=== PATIENT | female | born 1935 | race Two or more races ===

== ENCOUNTER 2017-08-02 17:06 | Inpatient (IN) | payer MEDICARE, OTHER ==
[~2017-08-02] VITALS: Ht 142.2 cm; Wt 47.3 kg
--- NOTE | 2017-08-02 17:19 | NUR ---
PT BIBA FROM HOME S/P FALL AND POSSIBLE LEFT HIP AND KNEE INJURY. NOTED HX OF KNEE REPLACEMENTS. SEEN BY MD FOR CALEB. FAVIOLA AWAD. PT AAOX3. VSS. SAFETY AND COMFORT MEASURES PROVIDED. WILL MONITOR.
--- NOTE | 2017-08-02 17:54 | NUR ---
PATIENCE PETER AT BS.
--- NOTE | 2017-08-02 18:01 | NUR ---
CALLED DR.NUSSBAUM GINETTE CLEAT FEEDER, TRANSFERRED CALL TO
--- NOTE | 2017-08-02 18:22 | NUR ---
PAGED TRAFFIC SIGNAL MECHANIC HOSPITALIST DR MENDEZ.
[2017-08-02] MEDS ORDERED: [UNRECOGNIZED DRUG - REMARK] (18:25)
[2017-08-02] MEDS ORDERED: [UNRECOGNIZED DRUG - REMARK] (18:25)
[2017-08-02] MEDS ORDERED: [UNRECOGNIZED DRUG - REMARK] (18:25)
[2017-08-02] MEDS ORDERED: UNK BP MEDICATION (18:25)
[2017-08-02 18:34] LABS: BASOPHILS % (AUTO) 0.1 % (0.0-2.0); EOSINOPHILS # (AUTO) 0.1 /CMM (0.0-0.7); EOSINOPHILS % (AUTO) 0.6 % (0.0-6.0); HEMATOCRIT 25 % (33-45); HEMOGLOBIN 8.5 g/dL (11.5-14.8); LYMPHOCYTES # (AUTO) 1.1 /CMM (0.8-4.8); MEAN CORPUSCULAR HEMOGLOBIN 31 PG (26.0-33.0); MEAN CORPUSCULAR HGB CONC 34 g/dl (31.0-36.0); MEAN CORPUSCULAR VOLUME 89 fL (82-100); MONOCYTES # (AUTO) 0.5 /CMM (0.1-1.30); MONOCYTES % (AUTO) 4.7 % (2.0-12.0); NEUTROPHILS # (AUTO) 8.4 /CMM (1.8-8.9); NEUTROPHILS % (AUTO) 83.6 % (43.0-81.0); PLATELET COUNT (AUTO) 209 /CMM (150-450); RDW COEFFICIENT OF VARIATION 16.6 (11.5-15.0); WHITE BLOOD COUNT (AUTO) 10.1 K/uL (4.3-11.0)
[2017-08-02 18:44] LABS: CALCIUM, SERUM 8.3 mg/dL (8.5-10.1); CARBON DIOXIDE 28 mmol/L (21-32); CHLORIDE 102 mmol/L (98-107); CREATININE 0.8 mg/dL (0.6-1.3); GLUCOSE 106 mg/dL (74-106); POTASSIUM 4.2 mmol/L (3.5-5.1); SODIUM SERUM 135 mmol/L (136-145); UREA NITROGEN, BLOOD 19 mg/dL (7-18)
[2017-08-02 18:48] LABS: INR 1.02 (0.87-1.13); PROTHROMBIN TIME 10.6 SECS (9.5-12.7)
[2017-08-02] MEDS ORDERED: MORPHINE SULFATE INJ 2 MG/ML DISP.SYRIN IV PRN (19:00)
[2017-08-02] MEDS ORDERED: ZOLPIDEM TARTRATE 5 MG TABLET PO PRN (19:00)
[2017-08-02] MEDS ORDERED: MAGNESIUM HYDROXIDE 30 ML UDC PO PRN (19:00)
[2017-08-02] MEDS ORDERED: Z GUARD REMEDY 2 OZ OINT TP PRN (19:00)
--- NOTE | 2017-08-02 19:41 | NUR ---
REPORT CALLED TO M/S LINDA KAMARA.
[2017-08-02 20:00] VITALS: BP 119/53
--- NOTE | 2017-08-02 20:00 | NUR ---
MS/RN OPENING NOTES PT RECEIVED FROM ER VIA DAMONRBRENDA ACCOMPANIED BY FAMILY. A/OX3, POLISH SPEAKING. IV TO LAC PATENT AND INTACT. ON ROOM AIR, BREATHING EVEN AND UNLABORED. IN NO APPARENT DISTRESS. NOTES PAIN 7/10 TO LEFT LEG. ORIENTED PT TO ROOM AND CALL LIGHT. BED IN LOW/LOCKED POSITION WITH CALL LIGHT IN REACH. SIDE RAILS UPX2. WILL CONTINUE TO MONITOR
[2017-08-02] MEDS ORDERED: FERR-58 PO (20:33)
[2017-08-02] MEDS ORDERED: BENA40TA2 PO (20:33)
[2017-08-02] MEDS ORDERED: MULT1TAB73 PO (20:33)
[2017-08-02] MEDS ORDERED: ATEN50TA PO (20:33)
[2017-08-02] MEDS ORDERED: OMEP20CA10 PO (20:33)
[2017-08-02] MEDS ORDERED: DICL50TA9 PO (20:33)
[2017-08-02] MEDS ORDERED: AMLO5TAB2 PO (20:33)
[2017-08-02] MEDS ORDERED: CYAN10009 PO (20:33)
[2017-08-02] MEDS ORDERED: CHOL200026 PO (20:33)
[2017-08-02] MEDS ORDERED: CALC-1026 PO (20:33)
[2017-08-02 20:35] VITALS: BP 119/53
[2017-08-02] MEDS: HYDROCODONE/APAP 5/325MG 1 EACH TABLET PO PRN (20:53)
--- NOTE | 2017-08-03 06:17 | NUR ---
MS/RN CLOSING NOTES PT ASLEEP, GRANDDAUGHTER AT BEDSIDE THROUGHOUT THE NIGHT. A/OX3, REMAINS ON ROOM AIR, BREATHING EVEN AND UNLABORED. IN NO APPARENT DISTRESS OR PAIN. NO FACIAL GRIMACING NOTED. IV TO LAC PATENT AND INTACT. BED IN LOW/LOCKED POSITION, CALL LIGHT WITHIN REACH AT ALL TIMES. SIDE RAILS UPX2. NO SIGNIFICANT CHANGES OVERNIGHT. KEPT PT COMFORTABLE DURING SHIFT. ALL NEEDS MET. WILL ENDORSE TO AM SHIFT EMILY.
[2017-08-03 06:42] LABS: BASOPHILS % (AUTO) 0.5 % (0.0-2.0); EOSINOPHILS % (AUTO) 0.9 % (0.0-6.0); HEMATOCRIT 23 % (33-45); HEMOGLOBIN 7.8 g/dL (11.5-14.8); LYMPHOCYTES # (AUTO) 1.5 /CMM (0.8-4.8); LYMPHOCYTES % (AUTO) 29.9 % (20.0-44.0); MEAN CORPUSCULAR HEMOGLOBIN 31 PG (26.0-33.0); MEAN CORPUSCULAR HGB CONC 34 g/dl (31.0-36.0); MEAN CORPUSCULAR VOLUME 90 fL (82-100); MONOCYTES # (AUTO) 0.4 /CMM (0.1-1.30); MONOCYTES % (AUTO) 8.9 % (2.0-12.0); NEUTROPHILS % (AUTO) 59.8 % (43.0-81.0); PLATELET COUNT (AUTO) 190 /CMM (150-450); RDW COEFFICIENT OF VARIATION 16.8 (11.5-15.0); RED BLOOD CELL COUNT(AUTO) 2.51 MIL/uL (4.0-5.2); WHITE BLOOD COUNT (AUTO) 4.9 K/uL (4.3-11.0)
[2017-08-03 07:04] LABS: CALCIUM, SERUM 8.7 mg/dL (8.5-10.1); CREATININE 0.8 mg/dL (0.6-1.3); GLUCOSE 88 mg/dL (74-106); MAGNESIUM 1.9 mg/dL (1.8-2.4); PHOSPHORUS 3.9 mg/dL (2.5-4.9); UREA NITROGEN, BLOOD 15 mg/dL (7-18)
[2017-08-03 07:18] LABS: CARBON DIOXIDE 28 mmol/L (21-32); CHLORIDE 104 mmol/L (98-107); POTASSIUM 4.6 mmol/L (3.5-5.1); SODIUM SERUM 138 mmol/L (136-145)
[2017-08-03] MEDS ORDERED: CHOL100044 PO (07:36)
[2017-08-03 08:00] VITALS: BP 96/44
[2017-08-03] MEDS: MORPHINE SULFATE INJ 4 MG/ML DISP.SYRIN IV PRN ×2 (15:41→20:25)
[2017-08-03 16:00] VITALS: BP 102/54
--- NOTE | 2017-08-03 16:45 | NUR ---
DR MENDEZ ON FLOOR. INFORMED MD OR NEED FOR MED RECON.
--- NOTE | 2017-08-03 19:30 | NUR ---
SUPPORT SERVICE TECH NOTE, RECEIVED PATIENT AWAKE AND IN BED HAS A COMPLAINT OF LEFT LEG PAIN AT 7 OUT 10ON THE PAIN SCALE. PATIENT IS ON IV PAIN MEDICATION FOR THIS PAIN. PATIENT IS GUINEAN SPEAKING ONLY. PATIENT IS DISPLAYING NO S/S OF APPARENT DISTRESS AT THIS TIME. PATIENT BREATHING IS UNLABORED WITH EQUAL RISE AND FALL OF THE CHEST. PATIENT IS ALERT AND ORIENTED X 3 ON ROOM AIR WITH A SPOO2 98 %. PATIENT HAS LEFT AC 20 GAUGE THAT IS INTACT, PATENT, AND FLUSHING WELL WITH NO S/S OF INFILTRATION. PATIENT ASSISTED WITH TURNING AND REPOSITIONING Q2HR AND PRN FOR COMFORT AND CIRCULATION. PATIENT HAS NO NEEDS AT THIS TIME. PATIENT EDUCATED ON THE USE OF THE CALL LIGHT. PATIENT BED SIDE RAILS UP X 2 FOR SAFETY. PATIENT BED IS LOCKED AND LOW WILL CONTINUE TO MONITOR AND MAINTAIN SAFETY WITH THE HELP OF STAFF.
[2017-08-03 20:00] VITALS: BP 127/62
--- NOTE | 2017-08-03 20:25 | NUR ---
MED / PLANT PROTECTION SUPERINTENDENT NOTE, PATIENT HAS A COMPLAINT OF LEFT LEG PAIN AT 8 OUT 10 ON THE PAIN SCALE AND IS REQUESTING MORPHINE. PATIENT VITAL SIGNS ARE STABLE. GAVE MORPHINE SULFATE 2 MG IV Q4HR PRN ORDERED. WILL REASSESS PAIN AND I WILL CONTINUE TO MONITOR THIS PATIENT.
--- NOTE | 2017-08-04 06:07 | NUR ---
MODELING INSTRUCTOR NOTE, PATIENT AWAKE AND IN BED HAS A COMPLAINT OF LEFT LEG PAIN AT 7 OUT 10 ON THE PAIN SCALE. PATIENT IS ON IV PAIN MEDICATION FOR THIS PAIN. PATIENT IS TURKMEN SPEAKING ONLY. PATIENT IS DISPLAYING NO S/S OF APPARENT DISTRESS AT THIS TIME. PATIENT BREATHING IS UNLABORED WITH EQUAL RISE AND FALL OF THE CHEST. PATIENT IS ALERT AND ORIENTED X 3 ON ROOM AIR WITH A SPOO2 98 %. PATIENT HAS LEFT AC 20 GAUGE THAT IS INTACT, PATENT, AND FLUSHING WELL WITH NO S/S OF INFILTRATION. PATIENT ASSISTED WITH TURNING AND REPOSITIONING Q2HR AND PRN FOR COMFORT AND CIRCULATION. ALL PATIENT NEEDS ANTICIPATED AND MET. PATIENT KEPT CLEAN, DRY, AND COMFORTABLE THROUGH OUT THE SHIFT. PATIENT BED SIDE RAILS UP X 2 FOR SAFETY. PATIENT BED IS LOCKED AND LOW WILL ENDORSE TO AM SHIFT NURSE FOR CONTINUATION OF CARE.
--- NOTE | 2017-08-04 07:05 | NUR ---
MS RN OPENING NOTES RECEIVED PT FROM NIGHTSHIFT NURSE IN STABLE CONDITION. PT IS A/O X3. NO SOB OR SIGNS OF DISTRESS NOTED. BREATHING IS EVEN AND UNLABORED. PT IS ON RA AND SATING WELL @97%. PT HAS BEEN NPO SINCE MIDNIGHT FOR PLANNED PROCEDURE THIS MORNING WITH DR. MAGALLON. CONSENTS AND CHECKLIST COMPLETED. IV NOTED ON LEFT AC 20G. IV IS PATENT AND INTACT. NO REDNESS OR SIGNS OF INFILTRATION NOTED. BED IN LOW LOCKED POSITION, SIDE RAILS UP X2, CALL LIGHT WITHIN REACH. PT'S GRANDDAUGHTER AT BEDSIDE. WILL CONTINUE TO MONITOR
[2017-08-04 08:00] VITALS: BP 101/42
[2017-08-04 08:28] LABS: BASOPHILS % (AUTO) 0.4 % (0.0-2.0); EOSINOPHILS % (AUTO) 0.2 % (0.0-6.0); HEMATOCRIT 22 % (33-45); HEMOGLOBIN 7.7 g/dL (11.5-14.8); LYMPHOCYTES # (AUTO) 1.3 /CMM (0.8-4.8); LYMPHOCYTES % (AUTO) 23.3 % (20.0-44.0); MEAN CORPUSCULAR HEMOGLOBIN 32 PG (26.0-33.0); MEAN CORPUSCULAR HGB CONC 34 g/dl (31.0-36.0); MEAN CORPUSCULAR VOLUME 92 fL (82-100); MONOCYTES # (AUTO) 0.4 /CMM (0.1-1.30); MONOCYTES % (AUTO) 7.9 % (2.0-12.0); NEUTROPHILS # (AUTO) 3.7 /CMM (1.8-8.9); NEUTROPHILS % (AUTO) 68.2 % (43.0-81.0); PLATELET COUNT (AUTO) 178 /CMM (150-450); RED BLOOD CELL COUNT(AUTO) 2.44 MIL/uL (4.0-5.2); WHITE BLOOD COUNT (AUTO) 5.4 K/uL (4.3-11.0)
[2017-08-04 08:47] LABS: THYROID STIMULATING HORMONE 4.216 uIU/mL (0.358-3.74)
[2017-08-04 08:53] LABS: CALCIUM, SERUM 8.6 mg/dL (8.5-10.1); CHLORIDE 104 mmol/L (98-107); CREATININE 0.7 mg/dL (0.6-1.3); GLUCOSE 98 mg/dL (74-106); MAGNESIUM 1.9 mg/dL (1.8-2.4); PHOSPHORUS 3.4 mg/dL (2.5-4.9); POTASSIUM 4.5 mmol/L (3.5-5.1); SODIUM SERUM 138 mmol/L (136-145); UREA NITROGEN, BLOOD 13 mg/dL (7-18)
[2017-08-04 09:06] LABS: CARBON DIOXIDE 27 mmol/L (21-32)
[2017-08-04 09:47] LABS: IRON, SERUM 27 ug/dl (50-175); TOTAL IRON BINDING CAPACITY 307 ug/dl (250-450)
--- NOTE | 2017-08-04 10:01 | NUR ---
MS RN NOTES PT TAKEN DOWN FOR PROCEDURE IN STABLE CONDITION
[2017-08-04] MEDS ORDERED: MORPHINE SULFATE/PF 10 MG/10ML (1MG/ML) AMPUL ONE (10:30)
[2017-08-04] MEDS ORDERED: TRANEXAMIC ACID 3,000 MG in SODIUM CHLORIDE IRRIG SOLUTION 70 ML IR ONE (11:30)
[2017-08-04] MEDS ORDERED: BACITRACIN 50000 UNITS/VIAL ONE (12:28)
--- NOTE | 2017-08-04 14:03 | NUR ---
MS RN NOTES PT BACK FROM OR IN STABLE CONDITION. LEFT KNEE IMMOBILIZER NOTED. DIET WAS ADVANCED TO CLEAR LIQUIDS. ORDERS BY DR. MAGALLON REVIEWED AND NOTED. PT'S CURRENT VITALS: BP 114/55; HR 84, O2 98%, R 19, TEMP 98.4. WILL CONTINUE TO MONITOR.
[2017-08-04] MEDS: SOD FERRIC GLUC 125 MG in IV NS 0.9% 100 ML IV SCH (14:37)
[2017-08-04] MEDS: ONDANSETRON HCL/PF 4 MG/2 ML VIAL IVP PRN ×2 (14:57→21:55)
[2017-08-04 16:00] VITALS: BP 91/49
[2017-08-04] MEDS: DOCUSATE SODIUM 100 MG CAPSULE PO SCH (16:02)
--- NOTE | 2017-08-04 16:04 | NUR ---
MS RN NOTES PT'S VITAL SIGNS HAVE CONTINUED TO FLUCTUATE SINCE ARRIVAL FROM OR. HER BP HAS GONE HIGH 134/63 TO LOW 84/42. SHE WAS PLACED IN [place] AND HER BP HAS REMAINED IN THE HIGH 90S TO LOW 100S. VARIOUS METHODS WERE TRIED TO GET A PROPER O2 SAT READING. PT'S SAT HAS BEEN HIGH 100% BUT THEN DROPS TO THE LOW 80S. SHE WAS PLACED ON A NONREBREATHER MASK TO NO AVAIL. AN ADULT AND PEDIATRIC PULSE OX ADHESIVE SENSOR WERE PLACED ON PT, BUT STILL UNABLE TO GET A PROPER READING. DR. MENDEZ WAS CALLED THROUGH THE EXCHANGE. CURRENTLY AWAITING CALL BACK.
--- NOTE | 2017-08-04 16:21 | NUR ---
RN NOTES CALL RECEIVED BY DR. MENDEZ. PER DR MENDEZ, "TRANSFER PT TO TELE, GET AND ORDER FOR CXR, ABGS, AND ALBUTEROL NEBULIZER TREATMENT Q4" WILL CARRY OUT ORDERS Addendum: 08/04/17 at 1623 by DEBORAH VILLALPANDO RN DR MENDEZ ALSO STATED THAT SHE WILL LIKE AND ORDER FOR NS @ 100ML/HR.
[2017-08-04] MEDS ORDERED: IV NS 0.9% 1,000 ML BAG IV PRN (16:30)
[2017-08-04] MEDS: ANCEF 1 GM/50 ML D5W IV SCH ×2 (17:24)
[2017-08-04] MEDS: IV NS 0.9% 1,000 ML IV PRN (17:25)
[2017-08-04] MEDS: ALBUTEROL FS 2.5 MG/0.5 ML VIAL.NEB NEB SCH ×3 (17:50→22:53)
--- NOTE | 2017-08-04 18:03 | NUR ---
MS RN NOTES PER RESPIRATORY THERAPIST, PT IS SATING WELL BETWEEN 92-94%. SHE IS NOW ON 2L O2 VIA NC. FAMILY IS REFUSING ABGS AT THIS TIME.
--- NOTE | 2017-08-04 18:15 | NUR ---
[facility] MARKETING SPECIALIST NOTE RECEIVED TELEPHONE REPORT FROM LINDA CABRERA. AWAITING FOR THE PATIET'S ARRIVAL TO THE UNIT.
--- NOTE | 2017-08-04 18:45 | NUR ---
TUBE AND MANIFOLD BUILDERINSPECTOR RADAR AND ELECTRONICS CLOSING NOTE RECEIVED PATIENT. PATIENT IS IN BED, BED IS LOCKED IN LOWEST POSITION, SIDE RAILS UP X3, BED ALARM IS ON. PATIENT IS A/O X2, AWAKE AND RESPONSIVE. DAUGHTER ROSITA AT THE BEDSIDE. MS RN AFSATU REPORTED TWO EPISODES OF LOOSE STOOL. WILL ENDORSE TO THE ADMINISTRATIVE SERVICES COORDINATOR TO COLLECT A SAMPLE FOR CDIFF. PATIENT DENIES PAIN/DISCOMFORT AT THIS TIME. CHEST IS RISING EQUALLY BILATERALLY. SPO2 95 % ON 2L VIA NASAL CANNULA. LAC PERIPHERAL IV IS PATENT. NS RUNNING AT 100ML/HR PRESCRIBED. ALL NEEDS ARE MET AT THIS TIME. CALL LIGHT WITHIN REACH. PATIENT/DAUGHTER EDUCATED TO CALL FOR ASSISTANCE USING THE CALL LIGHT AND VERBALIZED UNDERSTANDING. WILL ENDORSE TO THE ADMINISTRATIVE SERVICES COORDINATOR NURSE FOR EMILY.
--- NOTE | 2017-08-04 18:56 | NUR ---
MS RN CLOSING NOTES PT WAS TRANSFERRED TO ROOM 321-2. REPORT GIVEN TO KAREN. PT HAD TWO LOOSE STOOLS DURING MY SHIFT AND ANOTHER DURING TRANSFER. ENDORSED TO [facility] TO GET A SAMPLE FOR CDIFF PER PROTOCOL. ALL NEEDS WERE MET DURING SHIFT AND ORDERS CARRIED OUT ACCORDINGLY.
--- NOTE | 2017-08-04 19:30 | NUR ---
RN NOTES RECEIVED PATIENT IN BED AWAKE, AO X 3, ABLE TO MAKE NEEDS KNOWN. NO ACUTE DISTRESS NOTED. MONITORED FOR PAIN. IV SITE PATENT, INTACT; IVF INFUSING ORDERED. LEFT LEG IMMOBILIZER IN PLACE. LEFT HIP DRESSING INTACT. SAFETY REMINDERS GIVEN. ON LOW BED WITH BILATERAL UPPER SIDE RAILS UP. CALL FERNANDEZ WITHIN EASY REACH. WILL CONTINUE TO MONITOR.
[2017-08-04 20:00] VITALS: BP 110/69
[2017-08-04] MEDS: HYDROCODONE/APAP 5/325MG 1 EACH TABLET PO PRN (21:08)
[2017-08-04] MEDS: MORPHINE SULFATE INJ 4 MG/ML DISP.SYRIN IV PRN (21:56)
[2017-08-04] MEDS: POLYETHYLENE GLYCOL 3350 17 GM POWD.PACK PO SCH (22:00)
[2017-08-05] VITALS (12 sets, daily range): BP systolic 109–154; BP diastolic 53–88
[2017-08-05] MEDS: ANCEF 1 GM/50 ML D5W IV SCH ×4 (00:24→09:03)
[2017-08-05] MEDS: ALBUTEROL FS 2.5 MG/0.5 ML VIAL.NEB NEB SCH ×6 (02:39→23:15)
[2017-08-05] MEDS: ONDANSETRON HCL/PF 4 MG/2 ML VIAL IVP PRN ×2 (04:33→19:59)
[2017-08-05] MEDS: ENOXAPARIN SODIUM 40 MG/0.4 ML DISP.SYRIN SQ SCH (06:00)
--- NOTE | 2017-08-05 06:05 | NUR ---
RN NOTES LOVENOX HELD PER ORDER FROM DR. MAGALLON TO GIVE LOVENOX IF HGB IS >9. LATEST HGB 7.7; LOVENOX HELD.
--- NOTE | 2017-08-05 06:07 | NUR ---
RN NOTES RECEIVED PATIENT IN BED ASLEEP, EASILY AROUSABLE. RESPIRATIONS EVEN. NO SIGNS OF PAIN NOTED. DUE MEDS GIVEN WITH NO ASE NOTED. NEEDS ATTENDED. KEPT CLEAN AND DRY. STOOL COLLECTED FOR C DIFF. SAFETY PRECAUTIONS AND COMFORT MEASURES IN PLACE. WILL GIVE REPORT TO DAY SHIFT FOR CONTINUITY OF CARE.
[2017-08-05 06:39] LABS: EOSINOPHILS % (AUTO) 0.1 % (0.0-6.0); LYMPHOCYTES # (AUTO) 0.8 /CMM (0.8-4.8); LYMPHOCYTES % (AUTO) 5.5 % (20.0-44.0); MEAN CORPUSCULAR HEMOGLOBIN 31 PG (26.0-33.0); MEAN CORPUSCULAR HGB CONC 34 g/dl (31.0-36.0); MEAN CORPUSCULAR VOLUME 93 fL (82-100); MONOCYTES # (AUTO) 0.9 /CMM (0.1-1.30); MONOCYTES % (AUTO) 6.1 % (2.0-12.0); NEUTROPHILS # (AUTO) 12.9 /CMM (1.8-8.9); NEUTROPHILS % (AUTO) 88.3 % (43.0-81.0); PLATELET COUNT (AUTO) 174 /CMM (150-450); RDW COEFFICIENT OF VARIATION 16.5 (11.5-15.0); RED BLOOD CELL COUNT(AUTO) 2.06 MIL/uL (4.0-5.2); WHITE BLOOD COUNT (AUTO) 14.6 K/uL (4.3-11.0)
[2017-08-05 06:50] LABS: HEMATOCRIT 19 % (33-45); HEMOGLOBIN 6.4 g/dL (11.5-14.8)
[2017-08-05] MEDS: MORPHINE SULFATE INJ 4 MG/ML DISP.SYRIN IV PRN ×3 (06:56→23:04)
[2017-08-05] MEDS: IV NS 0.9% 1,000 ML IV PRN (07:00)
--- NOTE | 2017-08-05 07:26 | NUR ---
RN NOTES PAGED DR. MENDEZ FOR CRITICAL H/H. WAITING FOR CALL BACK. NOTIFIED DAY SHIFT NURSE.
--- NOTE | 2017-08-05 07:33 | NUR ---
STEEL DIE ENGRAVER OPENING NOTES RECEIVED PATIENT AWAKE IN BED IN NO ACUTE SIGNS OF DISTRESS. GRANDDAUGHTER AT BEDSIDE. A/O X 3, SAME ABLE TO MAKE NEEDS KNOWN, NO C/O PAIN OR DISCOMFORTS VOICED AT THIS TIME. ON ROOM AIR AT THIS TIME, TOLERATING WITH NO SOB NOTED. PT ON TELE-MONITORING WITH CURRENT READING OF SR AND HR OF 82, NO C/O CHEST PAIN VOICED. IV SITE ON LAC PATENT AND INTACT, IVF OF NS @100 ML/HR INFUSING, NO SIGNS OF INFILTRATIONS NOTED. LEFT LEG IMMOBILIZER IN PLACE, LEFT HIP DRESSING INTACT, DRY WITH NO ACTIVE BLEEDING NOTED. BED LOCKED AND IN LOW POSITION WITH BILATERAL UPPER SIDE RAILS UP. CALL FERNANDEZ WITHIN EASY REACH. WILL CONTINUE TO MONITOR.
--- NOTE | 2017-08-05 07:43 | NUR ---
RN NOTES ORDER RECEIVED FOR PRBC TRANSFUSION FROM DR. MENDEZ, NOTED AND CARRIED OUT.
--- NOTE | 2017-08-05 08:05 | NUR ---
RN NOTES MD ORDERED FOR BLOOD TRANSFUSION TODAY FOR PT, EXPLAINED TO PT AND GREAT GRANDDAUGHTER AT BEDSIDE THAT PT NEEDS BLOOD TRANSFUSION BEC OF PT'S LOW HGB AND HCT, BOTH VERBALIZED UNDERSTANDING AND CONSENT WAS SIGNED AND FILED ON CHART.
[2017-08-05] MEDS: DOCUSATE SODIUM 100 MG CAPSULE PO SCH ×2 (09:00→16:57)
[2017-08-05 09:48] LABS: CARBON DIOXIDE 20 mmol/L (21-32); CHLORIDE 105 mmol/L (98-107); POTASSIUM 4.8 mmol/L (3.5-5.1); SODIUM SERUM 140 mmol/L (136-145)
[2017-08-05 09:50] LABS: CALCIUM, SERUM 7.5 mg/dL (8.5-10.1); CREATININE 2.4 mg/dL (0.6-1.3); GLUCOSE 147 mg/dL (74-106); UREA NITROGEN, BLOOD 40 mg/dL (7-18)
[2017-08-05 10:28] LABS: PHOSPHORUS 5.8 mg/dL (2.5-4.9)
[2017-08-05] MEDS: HYDROCODONE/APAP 5/325MG 1 EACH TABLET PO PRN (10:38)
--- NOTE | 2017-08-05 11:07 | NUR ---
RN NOTES PATIENT STARTED ON BLOOD TRANSFUSION OF 1 BAG 329ML PRBC WITH PRE BT V/S OF BP 144/75MMHG, P 86, R 18 AND TEMP OF 97.5F. WILL CONTINUE TO MONITOR.
--- NOTE | 2017-08-05 11:24 | NUR ---
RN NOTES PATIENT WITH ONGOING B/T NO ADVERSE REACTIONS NOTED AFTER 15MINUTES. WILL CONTINUE TO MONITOR.
[2017-08-05 11:54] LABS: BAND % (MANUAL) 11 % (0.0-5.0); LYMPHOCYTES % (MANUAL) 3 % (16-48); MONOCYTES % (MANUAL) 4 % (0-11.0); NEUTROPHILS % (MANUAL) 82 (42-76)
--- NOTE | 2017-08-05 14:05 | NUR ---
RN NOTES PT BLOOD TRANSFUSION FINISHED WITH POST B/T VS OF BP 140/61MMHG, P 89, R 18 AND T 97.8F. NO ADVERSE REACTIONS NOTED THROUGHOUT BLOOD TRANSFUSION. NO S/S OF DISTRESS NOTED. WILL CONTINUE TO MONITOR
[2017-08-05] MEDS: SOD FERRIC GLUC 125 MG in IV NS 0.9% 100 ML IV SCH (15:10)
--- NOTE | 2017-08-05 18:51 | NUR ---
MS RN CLOSING NOTES PATIENT AWAKE AND RESTING @ MODERATE HIGH BACKREST IN BED. A/O X 3 AND VERBALLY RESPONSIVE IN INDONESIAN. ON ROOM AIR AT THIS TIME, TOLERATING WITH NO SOB NOTED. IV SITE ON LEFT HAND G#22 PATENT AND INTACT, IVF OF NS @100 ML/HR INFUSING, NO SIGNS OF INFILTRATIONS NOTED. LEFT LEG IMMOBILIZER IN PLACE, LEFT HIP DRESSING INTACT, DRY WITH NO ACTIVE BLEEDING NOTED. HOB KEPT ELEVATED. BED LOCKED AND IN LOW POSITION WITH BILATERAL UPPER SIDE RAILS UP. CALL FERNANDEZ WITHIN EASY REACH. ALL NEEDS AND CARE PROVIDED WELL. WILL ENDORSED TO GROUND SYSTEMS ENGINEER NURSE FOR EMILY. .
--- NOTE | 2017-08-05 18:51 | NUR ---
MS RN OPENING NOTES PATIENT AWAKE AND RESTING @ MODERATE HIGH BACKREST IN BED. A/O X 3 AND VERBALLY RESPONSIVE IN CROATIAN. ON ROOM AIR AT THIS TIME, TOLERATING WITH NO SOB NOTED. IV SITE ON LEFT HAND G#22 PATENT AND INTACT, IVF OF NS @100 ML/HR INFUSING, NO SIGNS OF INFILTRATIONS NOTED. LEFT LEG IMMOBILIZER IN PLACE, LEFT HIP DRESSING INTACT, DRY WITH NO ACTIVE BLEEDING NOTED. HOB KEPT ELEVATED. BED LOCKED AND IN LOW POSITION WITH BILATERAL UPPER SIDE RAILS UP. CALL FERNANDEZ WITHIN EASY REACH. ALL NEEDS AND CARE PROVIDED WELL. WILL ENDORSED TO DIRECTOR CAMP NURSE FOR EMILY. . Addendum: 08/05/17 at 1932 by YOLIE ANDERSON RN ERROR: NOTES SHOULD BE MS RN CLOSING NOTES;
[2017-08-05] MEDS: MAG HYDROX/AL HYDROX/SIMETH 30 ML UDC PO PRN (19:59)
[2017-08-05] MEDS ORDERED: ALBUTEROL FS 2.5 MG/0.5 ML VIAL.NEB ONE (20:06)
[2017-08-05] MEDS: POLYETHYLENE GLYCOL 3350 17 GM POWD.PACK PO SCH (22:00)
[2017-08-06] VITALS (11 sets, daily range): BP systolic 103–125; BP diastolic 46–59
[2017-08-06] MEDS: ALBUTEROL FS 2.5 MG/0.5 ML VIAL.NEB NEB SCH ×6 (03:39→22:40)
--- NOTE | 2017-08-06 04:58 | NUR ---
RN NOTES PATIENT HAS PULLED OUT TWO IVS. POOR SAFETY AWARENESS. RECEIVED ORDER FOR BILATERAL SOFT WRIST RESTRAINTS FROM Eliud MILLER NP, NOTED AND MELA OUT. GRANDDAUGHTER JOHN AT BEDSIDE; MADE AWARE OF RESTRAINT ORDER; AGREEABLE WITH PLAN OF CARE.
[2017-08-06] MEDS: MORPHINE SULFATE INJ 4 MG/ML DISP.SYRIN IV PRN (05:30)
[2017-08-06] MEDS: IV NS 0.9% 1,000 ML IV PRN (05:36)
[2017-08-06] MEDS: ENOXAPARIN SODIUM 40 MG/0.4 ML DISP.SYRIN SQ SCH (06:00)
--- NOTE | 2017-08-06 06:05 | NUR ---
RN NOTES LOVENOX HELD PER ORDER FROM DR. MAGALLON TO GIVE LOVENOX IF HGB IS >9. LATEST HGB 6.4; LOVENOX HELD.
[2017-08-06 06:19] LABS: EOSINOPHILS % (AUTO) 0.1 % (0.0-6.0); HEMOGLOBIN 7.1 g/dL (11.5-14.8); LYMPHOCYTES # (AUTO) 0.9 /CMM (0.8-4.8); LYMPHOCYTES % (AUTO) 8.5 % (20.0-44.0); MEAN CORPUSCULAR HEMOGLOBIN 32 PG (26.0-33.0); MEAN CORPUSCULAR HGB CONC 35 g/dl (31.0-36.0); MEAN CORPUSCULAR VOLUME 90 fL (82-100); MONOCYTES # (AUTO) 0.9 /CMM (0.1-1.30); MONOCYTES % (AUTO) 8.5 % (2.0-12.0); NEUTROPHILS # (AUTO) 9.1 /CMM (1.8-8.9); NEUTROPHILS % (AUTO) 82.9 % (43.0-81.0); PLATELET COUNT (AUTO) 145 /CMM (150-450); RDW COEFFICIENT OF VARIATION 15.8 (11.5-15.0); RED BLOOD CELL COUNT(AUTO) 2.25 MIL/uL (4.0-5.2); WHITE BLOOD COUNT (AUTO) 10.9 K/uL (4.3-11.0)
--- NOTE | 2017-08-06 06:19 | NUR ---
RN NOTES PATIENT IN BED ASLEEP, EASILY AROUSABLE. RESPIRATIONS EVEN. NO SIGNS OF PAIN NOTED. DUE MEDS GIVEN WITH NO ASE NOTED. NEEDS ATTENDED. KEPT CLEAN AND DRY. SAFETY PRECAUTIONS AND COMFORT MEASURES IN PLACE. FAMILY AT BEDSIDE. WILL GIVE REPORT TO DAY SHIFT FOR CONTINUITY OF CARE.
[2017-08-06 06:36] LABS: HEMATOCRIT 20 % (33-45)
[2017-08-06 07:10] LABS: CALCIUM, SERUM 7.4 mg/dL (8.5-10.1); CARBON DIOXIDE 18 mmol/L (21-32); CHLORIDE 104 mmol/L (98-107); CREATININE 3.2 mg/dL (0.6-1.3); GLUCOSE 83 mg/dL (74-106); MAGNESIUM 1.8 mg/dL (1.8-2.4); PHOSPHORUS 3.3 mg/dL (2.5-4.9); POTASSIUM 3.7 mmol/L (3.5-5.1); SODIUM SERUM 136 mmol/L (136-145); UREA NITROGEN, BLOOD 56 mg/dL (7-18)
--- NOTE | 2017-08-06 07:24 | NUR ---
MS RN OPENING NOTES PATIENT RECEIVED AWAKE N BED IN NO ACUTE SIGNS OF DISTRESS. A/O X 3, VERBALLY RESPONSIVE IN JAPANESE, DENIES PAIN OR DISCOMFORTS AT THIS TIME. B/L SOFT WRIST RESTRAINTS IN PLACED TO PREVENT PT PULLING HER IV TUBE. ON ROOM AIR, TOLERATING WITH NO SOB NOTED. IV SITE ON LEFT WRIST G#22 PATENT AND INTACT, IVF OF NS @100 ML/HR INFUSING, NO SIGNS OF INFILTRATIONS NOTED. LEFT LEG IMMOBILIZER IN PLACE, LEFT HIP DRESSING INTACT, DRY WITH NO ACTIVE BLEEDING NOTED. HOB KEPT ELEVATED. BED LOCKED AND IN LOW POSITION WITH BILATERAL UPPER SIDE RAILS UP. CALL FERNANDEZ WITHIN EASY REACH. ALL NEEDS AND CARE PROVIDED WELL. WILL CONTINUE TO MONITOR.
[2017-08-06] MEDS: DOCUSATE SODIUM 100 MG CAPSULE PO SCH ×2 (08:45→17:00)
[2017-08-06 10:47] LABS: BAND % (MANUAL) 8 % (0.0-5.0); LYMPHOCYTES % (MANUAL) 12 % (16-48); MONOCYTES % (MANUAL) 2 % (0-11.0); NEUTROPHILS % (MANUAL) 78 (42-76)
[2017-08-06] MEDS ORDERED: Calcium Gluconate 0.465 MEQ/ML VIAL IV ONE (12:00)
[2017-08-06] MEDS ORDERED: Calcium Gluconate 1GM/10ML 4.65 MEQ in IV D5W 50 ML IV ONE (12:30)
[2017-08-06] MEDS: SOD FERRIC GLUC 125 MG in IV NS 0.9% 100 ML IV SCH (15:35)
--- NOTE | 2017-08-06 16:16 | NUR ---
RN NOTES DR MCCOY ORDER TO COLLECT URINE SPECIMEN FROM PT USING STRAIGHT CATHETER, ORDERED CARRIED OUT. COLLECTED URINE WITHOUT PROBLEM. PT'S DAUGHTER AT BEDSIDE AND AWARE OF PROCEDURE.
--- NOTE | 2017-08-06 17:28 | NUR ---
RN NOTES PT WITH LOW HGB OF 7.1 AND HCT OF 22 TODAY, STARTED BLOOD TRANSFUSION 289ML X1 AT 1710. PRE B/T V/S 114/51MMHG, P 110, R 18 AND TEMP 97.8F. NO ADVERSE REACTIONS NOTED AFTER 15MINUTES, NO SOB, NO RASHES NOTED. WILL CONTINUE TO MONITOR.
[2017-08-06 18:33] LABS: APPEARANCE,URINE SL CLOUDY (CLEAR); BILIRUBIN,URINE NEGATIVE (NEGATIVE); BLOOD, URINE 3+ Ery/uL (NEGATIVE); COLOR,URINE YELLOW (YELLOW); KETONES,URINE 1+ (NEGATIVE); LEUKOCYTE ESTERASE ,URINE TRACE (NEGATIVE); NITRITE, URINE NEGATIVE (NEGATIVE); PH,URINE 5.5 (5.0-8.0); PROTEIN,URINE 1+ mg/dl (NEGATIVE); UGLUCOSE NEGATIVE (NEGATIVE); UROBILINOGEN,URINE 0.2 EU/dL (0.2)
--- NOTE | 2017-08-06 18:46 | NUR ---
MS RN CLOSING NOTES PATIENT IN BED LYING AT SEMI-IBARRA'S POSITION. A/O X 3. VERBALLY RESPONSIVE IN SAO TOME[place], CONFUSED AT TIMES. B/L SOFT WRIST RESTRAINS IN PLACED TO PREVENT PT PULLING IV LINE AND GETTING OUT OF BED WHEN CONFUSE. DAUGHTER AT BEDSIDE THROUGHOUT THE DAY.ON ROOM AIR, TOLERATING WITH NO SOB NOTED. IV SITE ON LEFT WRIST G#22 PATENT AND INTACT, BLOOD TRANSFUSION ONGOING WITH NO ILL EFFECTS NOTED, V/S STABLE. LEFT LEG IMMOBILIZER IN PLACE, LEFT HIP DRESSING INTACT, DRY WITH NO ACTIVE BLEEDING NOTED. HOB KEPT ELEVATED. BED LOCKED AND IN LOW POSITION WITH BILATERAL UPPER SIDE RAILS UP. CALL FERNANDEZ WITHIN EASY REACH. ALL NEEDS AND CARE PROVIDED WELL. WILL ENDORSED TO YARN WEIGHT AND STRENGTH TESTER NURSE FOR CONTINUITY OF CARE.
[2017-08-06 19:08] LABS: CREATININE, URINE 68.8 MG/DL (30.0-125.0); URINE TOTAL PROTEIN 125.2 mg/dL (0-11.9)
--- NOTE | 2017-08-06 19:20 | NUR ---
MS/CAMERA REPAIR TECHNICIAN; RECEIVED PT IN BED AWAKE, VERBALLY RESPONSIVE, ALBANIAN SPEAKING. WITH FINISHING 1 UNIT OF PRBC ON PROGRESS. BREATHING NON LABORED. PT WITH BILATERAL SOFT WRIST RESTRAINTS ON TO PREVENT PULLING IV. BED ON LOWER POSITION AND LOCKED FOR SAFETY. SIDE RAILS ARE UP FOR SAFETY. CALL LIGHT WITHIN REACH.
[2017-08-06 19:22] LABS: BACTERIA,URINE 2+ /HPF (None Seen)
[2017-08-06 19:23] LABS: SQUAMOUS EPITHELIAL CELL,UR 0-2 /HPF (None Seen); URINE AMORPHOUS URATE Many /HPF (None Seen)
--- NOTE | 2017-08-06 19:45 | NUR ---
MS/MASH FILTER CLOTH CHANGER; BLOOD TRANSFUSION DONE. NO REACTION NOTED.
[2017-08-06 21:06] LABS: EOSINOPHIL,URINE NEG
[2017-08-06] MEDS: POLYETHYLENE GLYCOL 3350 17 GM POWD.PACK PO SCH (21:59)
--- NOTE | 2017-08-06 23:15 | NUR ---
MS/APPLICATION DEVELOPMENT INTERN; I PLACED A CALL TO JIM MILLER NP WHO IS CLINICAL TEAM MANAGER TO CLARIFY IF I NEED TO GIVE THE LOVENOX 40 SQ , PT POST OP S/P LT FEMUR ORIF AND HAD 1 UNIT OF PRBC AND SHE SAID TO GIVE IT.
[2017-08-07] MEDS: ALBUTEROL FS 2.5 MG/0.5 ML VIAL.NEB NEB SCH ×6 (02:27→23:55)
[2017-08-07] MEDS: IV NS 0.9% 1,000 ML IV PRN (04:05)
[2017-08-07] MEDS: MORPHINE SULFATE INJ 4 MG/ML DISP.SYRIN IV PRN (04:06)
--- NOTE | 2017-08-07 04:09 | NUR ---
MORPHINE GIVEN ORDERED FOR C/O SEVERE L SHOULDER AND LEG PAIN,. WILL CONT TO MONITOR,
[2017-08-07] MEDS: ENOXAPARIN SODIUM 40 MG/0.4 ML DISP.SYRIN SQ SCH (06:10)
[2017-08-07] MEDS: ONDANSETRON HCL/PF 4 MG/2 ML VIAL IVP PRN (06:19)
[2017-08-07 06:56] LABS: BASOPHILS % (AUTO) 0.1 % (0.0-2.0); EOSINOPHILS % (AUTO) 0.1 % (0.0-6.0); HEMATOCRIT 28 % (33-45); HEMOGLOBIN 9.5 g/dL (11.5-14.8); LYMPHOCYTES # (AUTO) 0.8 /CMM (0.8-4.8); LYMPHOCYTES % (AUTO) 5.9 % (20.0-44.0); MEAN CORPUSCULAR HEMOGLOBIN 32 PG (26.0-33.0); MEAN CORPUSCULAR HGB CONC 34 g/dl (31.0-36.0); MEAN CORPUSCULAR VOLUME 92 fL (82-100); MONOCYTES # (AUTO) 0.9 /CMM (0.1-1.30); MONOCYTES % (AUTO) 6.8 % (2.0-12.0); NEUTROPHILS # (AUTO) 11.3 /CMM (1.8-8.9); NEUTROPHILS % (AUTO) 87.1 % (43.0-81.0); PLATELET COUNT (AUTO) 151 /CMM (150-450); RDW COEFFICIENT OF VARIATION 15.3 (11.5-15.0)
--- NOTE | 2017-08-07 07:00 | NUR ---
MS/REPAIRING CALIBRATOR; SLEPT FAIRLY. IVF ON PROGRESS. SLEPT FAIRLY. DRESSING LT HIP INTACT . HAS IMMOBILIZER . CONTINUE TO MONITOR. WILL ENDORSE TO THE DAY SHIFT NURSE FOR CONTINUITY OF CARE.
[2017-08-07 07:16] LABS: ALANINE AMINOTRANSFERASE 39 U/L (12-78); ALBUMIN 2.1 g/dL (3.4-5.0); ALKALINE PHOSPHATASE 98 U/L (46-116); ASPARTATE AMINOTRANSFERASE 147 U/L (15-37); BILIRUBIN,TOTAL 0.7 mg/dL (0.2-1.0); CALCIUM, SERUM 7.8 mg/dL (8.5-10.1); CARBON DIOXIDE 15 mmol/L (21-32); CHLORIDE 104 mmol/L (98-107); CREATININE 2.2 mg/dL (0.6-1.3); GLUCOSE 66 mg/dL (74-106); MAGNESIUM 2.6 mg/dL (1.8-2.4); PHOSPHORUS 3.3 mg/dL (2.5-4.9); POTASSIUM 4.1 mmol/L (3.5-5.1); SODIUM SERUM 137 mmol/L (136-145); TOTAL PROTEIN, SERUM 5.2 g/dL (6.4-8.2); UREA NITROGEN, BLOOD 48 mg/dL (7-18)
[2017-08-07 07:20] LABS: CREATINE KINASE, TOTAL 617 U/L (26-192)
[2017-08-07 08:00] VITALS: BP 106/63
[2017-08-07 09:55] LABS: CREATINE KINASE MB 6.1 ng/mL (0-3.6)
[2017-08-07] MEDS: DOCUSATE SODIUM 100 MG CAPSULE PO SCH ×2 (10:18→17:00)
[2017-08-07 12:34] LABS: BAND % (MANUAL) 3 % (0.0-5.0); LYMPHOCYTES % (MANUAL) 13 % (16-48); NEUTROPHILS % (MANUAL) 84 (42-76)
[2017-08-07 16:00] VITALS: BP 112/55
--- NOTE | 2017-08-07 17:02 | NUR ---
patient stable on shift. Family at bedside. PT stood up patient in a.m. tolerated p.t. no episodes of falls on shift at this point and time. call light with in reach. Dressing is dry and intact. Pain is moderate. Per family patient is noted to have cough. Noted wet lung sounds from a.m. on excertion but not while moving in bed.
[2017-08-07] MEDS: SOD FERRIC GLUC 125 MG in IV NS 0.9% 100 ML IV SCH (18:40)
[2017-08-07] MEDS: ACETAMINOPHEN 325 MG TABLET PO PRN (19:55)
--- NOTE | 2017-08-07 19:55 | NUR ---
MAURICIO INITIAL NOTES CHECKED PT AFTER GOT REPORT FROM AM NURSE. PT COMPLAINT OF MILD PAIN GIVEN ORDERED AND FAMILY REQUESTED TOO. IVF STILL INFUSING ON HER LEFT WRIST PATENT AND INTACT. NOT IN ANY ACUTE DISTRESS NOTED. SHE'S CALMED AT THIS MOMENT NO SOFT WRIST RESTRAIN NOTED. AWARE WHERE SHE AT AND HOW TO USED THE CALL LIGHT SYSTEM. KEPT HER WARM AND COMFORTABLE AT ALL TIMES. FAMILY AT THE BEDSIDE AT THIS TIME. WILL CONTINUE TO MONITOR. PLACE CALL LIGHT AT REACH. Addendum: 08/08/17 at 0220 by ROHITH SALTER LVN TYLENOL GIVEN FOR HER MILD PAIN.
[2017-08-07 20:00] VITALS: BP 103/52
[2017-08-07 22:00] VITALS: BP 103/52
[2017-08-07] MEDS: POLYETHYLENE GLYCOL 3350 17 GM POWD.PACK PO SCH (22:00)
[2017-08-08] MEDS: ACETAMINOPHEN 325 MG TABLET PO PRN ×2 (01:45→10:23)
[2017-08-08] MEDS: IV NS 0.9% 1,000 ML IV PRN (01:45)
[2017-08-08] MEDS: MAG HYDROX/AL HYDROX/SIMETH 30 ML UDC PO PRN (02:12)
--- NOTE | 2017-08-08 02:20 | NUR ---
CATERING STAFF MEMBER/NOTES PT WOKE UP AND COMPLAINING OF BACK PAIN , REPOSITION HER FOR COMFORT, TYLENOL GIVEN AND PT TOLERATED WELL NO N/V NOTED. MAALOX ALSO ADMINISTERED FOR UPSET STOMACH . KEPT HER WARM AND COMFORTABLE AT ALL TIMES. WILL CONTINUE TO MONITOR. SITTER AT THE BEDSIDE. (GREAT GRAND DAUGHTER).
[2017-08-08] MEDS: ALBUTEROL FS 2.5 MG/0.5 ML VIAL.NEB NEB SCH ×4 (03:54→16:09)
[2017-08-08] MEDS: ENOXAPARIN SODIUM 40 MG/0.4 ML DISP.SYRIN SQ SCH (06:33)
[2017-08-08] MEDS: ONDANSETRON HCL/PF 4 MG/2 ML VIAL IVP PRN (06:42)
[2017-08-08 06:43] LABS: EOSINOPHILS % (AUTO) 0.1 % (0.0-6.0); HEMATOCRIT 28 % (33-45); HEMOGLOBIN 9.3 g/dL (11.5-14.8); LYMPHOCYTES # (AUTO) 0.7 /CMM (0.8-4.8); LYMPHOCYTES % (AUTO) 5.6 % (20.0-44.0); MEAN CORPUSCULAR HEMOGLOBIN 32 PG (26.0-33.0); MEAN CORPUSCULAR HGB CONC 34 g/dl (31.0-36.0); MEAN CORPUSCULAR VOLUME 94 fL (82-100); MONOCYTES # (AUTO) 0.9 /CMM (0.1-1.30); MONOCYTES % (AUTO) 7.9 % (2.0-12.0); NEUTROPHILS # (AUTO) 10.1 /CMM (1.8-8.9); NEUTROPHILS % (AUTO) 86.4 % (43.0-81.0); PLATELET COUNT (AUTO) 168 /CMM (150-450); RDW COEFFICIENT OF VARIATION 16.8 (11.5-15.0); RED BLOOD CELL COUNT(AUTO) 2.92 MIL/uL (4.0-5.2); WHITE BLOOD COUNT (AUTO) 11.7 K/uL (4.3-11.0)
[2017-08-08 07:02] LABS: CALCIUM, SERUM 8.1 mg/dL (8.5-10.1); CARBON DIOXIDE 16 mmol/L (21-32); CHLORIDE 104 mmol/L (98-107); CREATININE 1.7 mg/dL (0.6-1.3); GLUCOSE 74 mg/dL (74-106); POTASSIUM 3.8 mmol/L (3.5-5.1); SODIUM SERUM 136 mmol/L (136-145); UREA NITROGEN, BLOOD 46 mg/dL (7-18)
--- NOTE | 2017-08-08 07:30 | NUR ---
CLINICAL DATA RESEARCH/CLOSING NOTES PT BACK TO SLEEP AFTER ZOFRAN GIVEN AND MORNING CARE DONE. N/V SUBSIDE AND RESTING WELL AT THIS TIME. IVF STILL INFUSING AND ALL DUE MEDS GIVEN. KEPT HER WARM AND COMFORTABLE AT ALL TIMES. FAMILY STILL AT THE BEDSIDE. ENDORSE TO AM NURSE FOR CONTINUITY OF CARE.PLACE CALL LIGHT AT REACH.
--- NOTE | 2017-08-08 07:35 | NUR ---
RN OPENING NOTES RECEIVED PATIENT RESTING COMFORTABLY IN BED. AOX3 TURKMEN SPEAKING. COMPLAINING OF PAIN IN THE UPPER ABDOMEN. DENIES CP AND SOB. RESPIRATIONS EVEN AND UNLABORED. NO ACUTE DISTRESS. PATIENT STILL COMPLAINING OF NAUSEA. ZOFRAN GIVEN BY NIGHT RN. LEFT WRIST 22G PATENT AND INTACT. NS RUNNING AT 75 ML/HR. BED LOCKED IN THE LOWEST POSITION WITH SIDE RAILS UP X2. CALL LIGHT WITHIN REACH. WILL CONTINUE TO MONITOR, ASSESS, AND EDUCATE PATIENT THROUGHOUT SHIFT.
[2017-08-08 08:00] VITALS: BP_SYST 105; BP_SYST 116; BP_DIAS 44; BP_DIAS 49
--- NOTE | 2017-08-08 08:43 | NUR ---
RN NOTES PATIENT HAD AN EPISODE OF EMESIS. GREEN IN APPEARANCE. NOTIFIED DR. VINSON. WILL BE SEEN BY MD AND WILL ORDER NEW MEDICATION FOR NAUSEA.
[2017-08-08] MEDS: DOCUSATE SODIUM 100 MG CAPSULE PO SCH ×2 (09:00→17:00)
--- NOTE | 2017-08-08 09:12 | NUR ---
RN NON ADMIN NOTES PATIENT HAS DIARRHEA. COLACE HELD.
[2017-08-08] MEDS ORDERED: ASPI-992 PO (10:32)
[2017-08-08 13:12] LABS: PTH, INTACT 28 pg/mL (15-65)
[2017-08-08 14:13] LABS: *SPE A/G RATIO 1.1 (0.7-1.7); *SPE ALBUMIN 2.4 g/dL (2.9-4.4); *SPE ALPHA-1-GLOBULIN 0.4 g/dL (0.0-0.4); *SPE ALPHA-2-GLOBULIN 0.6 g/dL (0.4-1.0); *SPE BETA GLOBULIN 0.5 g/dL (0.7-1.3); *SPE GLOBULIN, TOTAL 2.1 g/dL (2.2-3.9); *SPE M-SPIKE Not Observed g/dL (Not Observed); *SPEGAMMA GLOBULIN 0.6 g/dL (0.4-1.8)
[2017-08-08 16:00] VITALS: BP 116/49
--- NOTE | 2017-08-08 19:00 | NUR ---
RN NON ADMIN NOTES PATIENT STILL HAS LOOSE STOOL. WILL HOLD COLACE.
--- NOTE | 2017-08-08 20:00 | NUR ---
RN CLOSING NOTES PATIENT DISCHARGED IN STABLE CONDITION TO [facility]. PATIENT VERBALIZED UNDERSTANDING OF ALL DISCHARGE INSTRUCTIONS. ALL EXITCARE PROVIDED, ACKNOWLEDGED AND SIGNED BY PATIENT FAMILY. ALL BELONGS TAKEN HOME AT AN EARLIER DATE AND DOCUMENTED. ALL NECESSARY DOCUMENTATION SENT WITH PATIENT TO FACILITY. LEFT KNEE PARI BANDAGE AND KNEE IMMOBILIZER. IV REMOVED. PATIENT TOLERATED WELL. PATIENT TO HAVE PRESCRIPTION TO CONTINUE MEDICATIONS. ALL NEEDS MET. ALL MEDS GIVEN NEEDED. REPORT GIVEN TO LINDA STARR.
--- NOTE | 2017-08-08 20:13 | NUR ---
RN NOTES PATIENT REMOVED FROM SYSTEM UN ABLE TO RETURN COLACE. WASTED COLACE WITH LINDA GIMENEZ WITNESS.
[2017-08-09 11:14] LABS: CALCITRIOL VIT D,1, 25 DIHYDRO 24.3 pg/mL (19.9-79.3)
[2017-08-09] MEDS ORDERED: ASPI-992 PO (17:04)
[2017-08-09] MEDS ORDERED: ACET-868 PO (17:04)
== END 2017-08-08 20:45 | DRG 480 ==
LOC: ER 17:08 → MEDSG2 19:36 → MED 08-04 19:52 → TELE 08-05 01:04 → MED 08-05 16:18
PROVIDERS: ADMIT Internal Medicine; ATTEND Internal Medicine
PROC: 0QSC04Z Reposition Left Lower Femur with Internal Fixation Device, Open Approach (ICD-10-PCS; principal; 2017-08-04 10:05)
PROC: 30233N1 Transfusion of Nonautologous Red Blood Cells into Peripheral Vein, Percutaneous Approach (ICD-10-PCS; 2017-08-05)
DX: S79.192A Other physeal fracture of lower end of left femur, initial encounter for closed fracture (principal); N17.0 Acute kidney failure with tubular necrosis; G93.41 Metabolic encephalopathy; E44.0 Moderate protein-calorie malnutrition; D62 Acute posthemorrhagic anemia; N13.8 Other obstructive and reflux uropathy; E88.09 Other disorders of plasma-protein metabolism, not elsewhere classified; E86.0 Dehydration; W18.30XA Fall on same level, unspecified, initial encounter; E86.9 Volume depletion, unspecified; D63.8 Anemia in other chronic diseases classified elsewhere; E78.5 Hyperlipidemia, unspecified; I10 Essential (primary) hypertension; K21.9 Gastro-esophageal reflux disease without esophagitis; M06.9 Rheumatoid arthritis, unspecified; Y93.01 Activity, walking, marching and hiking; Y92.009 Unspecified place in unspecified non-institutional (private) residence as the place of occurrence of the external cause; D50.0 Iron deficiency anemia secondary to blood loss (chronic); Z68.23 Body mass index [BMI] 23.0-23.9, adult; Z79.1 Long term (current) use of non-steroidal anti-inflammatories (NSAID); Z96.652 Presence of left artificial knee joint
CPT/HCPCS: 36415; 71010-TC; 71045; 73552; 73560-TC; 80048-TC; 80053-TC; 81000-TC; 82306; 82550-TC; 82553-TC; 82570-TC; 82652; 82746; 83540-TC; 83735-TC; 83970; 84100-TC; 84155; 84155-TC; 84165; 84300-TC; 84443-TC; 85025-TC; 85730-TC; 86850-TC; 86921-TC; 87081-TC; 87086-TC; 97112-TC; 97530-TC; A4217; A4606; A6253; A6402; C1713; J0610; J0690; J1100; J1650; J2270; J2274; J2405; J2916; J3490; J7030; J7060; L1830; P9016-BL; Z7610

== ENCOUNTER 2017-08-09 15:10 | Inpatient (IN) | payer OTHER ==
[~2017-08-09] VITALS: Ht 147.3 cm; Wt 48.5 kg
[~2017-08-09 15:10] MED LIST: AMLO5TAB2 PO; ASPI-992 PO; ATEN50TA PO; CALC-1026 PO; CHOL100044 PO; CYAN10009 PO; FERR-58 PO; MULT1TAB73 PO; OMEP20CA10 PO
[2017-08-09] MEDS ORDERED: ONDANSETRON HCL/PF 4 MG/2 ML VIAL ONE (15:57)
[2017-08-09] MEDS ORDERED: IV NS 0.9% 1,000 ML BAG IV ONE ×3 (16:00→18:00)
[2017-08-09] MEDS ORDERED: ONDANSETRON HCL/PF 4 MG/2 ML VIAL IVP ONE (16:00)
[2017-08-09 16:07] LABS: INR 1.43 (0.87-1.13); PROTHROMBIN TIME 14.9 SECS (9.5-12.7)
[2017-08-09 16:12] LABS: BASOPHILS % (AUTO) 0.1 % (0.0-2.0); EOSINOPHILS # (AUTO) 0.1 /CMM (0.0-0.7); EOSINOPHILS % (AUTO) 0.4 % (0.0-6.0); HEMATOCRIT 30 % (33-45); HEMOGLOBIN 10.2 g/dL (11.5-14.8); LYMPHOCYTES # (AUTO) 0.9 /CMM (0.8-4.8); LYMPHOCYTES % (AUTO) 5.2 % (20.0-44.0); MEAN CORPUSCULAR HEMOGLOBIN 32 PG (26.0-33.0); MEAN CORPUSCULAR HGB CONC 34 g/dl (31.0-36.0); MEAN CORPUSCULAR VOLUME 92 fL (82-100); MONOCYTES # (AUTO) 1.8 /CMM (0.1-1.30); NEUTROPHILS # (AUTO) 15.3 /CMM (1.8-8.9); NEUTROPHILS % (AUTO) 84.3 % (43.0-81.0); PLATELET COUNT (AUTO) 192 /CMM (150-450); RDW COEFFICIENT OF VARIATION 15.9 (11.5-15.0); RED BLOOD CELL COUNT(AUTO) 3.23 MIL/uL (4.0-5.2); WHITE BLOOD COUNT (AUTO) 18.1 K/uL (4.3-11.0)
[2017-08-09 16:13] LABS: CALCIUM, SERUM 8.6 mg/dL (8.5-10.1); CARBON DIOXIDE 17 mmol/L (21-32); CHLORIDE 102 mmol/L (98-107); CREATININE 0.9 mg/dL (0.6-1.3); GLUCOSE 86 mg/dL (74-106); POTASSIUM 3.4 mmol/L (3.5-5.1); SODIUM SERUM 133 mmol/L (136-145); UREA NITROGEN, BLOOD 29 mg/dL (7-18)
[2017-08-09 16:18] LABS: ALANINE AMINOTRANSFERASE 19 U/L (12-78); ALBUMIN 2.1 g/dL (3.4-5.0); ALKALINE PHOSPHATASE 81 U/L (46-116); ASPARTATE AMINOTRANSFERASE 45 U/L (15-37); BILIRUBIN,DIRECT 0.2 mg/dL (0.0-0.2); BILIRUBIN,TOTAL 0.7 mg/dL (0.2-1.0); LIPASE 332 U/L (73-393); TOTAL PROTEIN, SERUM 5.3 g/dL (6.4-8.2)
--- NOTE | 2017-08-09 17:01 | NUR ---
DR TRACY WAS PAGED
[2017-08-09] MEDS ORDERED: ASPI-992 PO (17:04)
[2017-08-09] MEDS ORDERED: ACET-868 PO (17:04)
[2017-08-09 17:45] LABS: APPEARANCE,URINE Clear (CLEAR); BILIRUBIN,URINE SMALL (NEGATIVE); BLOOD, URINE Moderate Ery/uL (NEGATIVE); COLOR,URINE Yellow (YELLOW); KETONES,URINE 15 (NEGATIVE); LEUKOCYTE ESTERASE ,URINE Negative (NEGATIVE); NITRITE, URINE Negative (NEGATIVE); PROTEIN,URINE 100 mg/dl (NEGATIVE); UGLUCOSE Negative (NEGATIVE); UROBILINOGEN,URINE 0.2 EU/dL (0.2)
[2017-08-09] MEDS ORDERED: ACETAMINOPHEN 325 MG TABLET PO PRN (18:00)
[2017-08-09] MEDS ORDERED: LEVOFLOXACIN 750 MG /D5W 150ML 150 ML IV SCH ×2 (18:00→21:00)
[2017-08-09] MEDS ORDERED: MORPHINE SULFATE INJ 2 MG/ML DISP.SYRIN IV PRN ×2 (18:00→20:45)
[2017-08-09] MEDS ORDERED: ONDANSETRON HCL/PF 4 MG/2 ML VIAL IVP PRN ×2 (18:00→20:45)
[2017-08-09 18:05] LABS: BACTERIA,URINE Rare /HPF (None Seen); HYALINE CASTS, URINE Rare /LPF (None Seen); SQUAMOUS EPITHELIAL CELL,UR Rare /HPF (None Seen); WBC,URINE 0-2 /HPF (0-3); YEAST,URINE Moderate /HPF (None Seen)
[2017-08-09 18:47] LABS: BAND % (MANUAL) 43 % (0.0-5.0); LYMPHOCYTES % (MANUAL) 10 % (16-48); MONOCYTES % (MANUAL) 13 % (0-11.0); NEUTROPHILS % (MANUAL) 34 (42-76)
[2017-08-09 19:00] LABS: OCCULT BLOOD STOOL POSITIVE (NEGATIVE)
[2017-08-09] MEDS ORDERED: METRONIDAZOLE 500 MG TABLET PO ONE (19:30)
--- NOTE | 2017-08-09 20:28 | NUR ---
REPORT GIVEN TO [facility] NURSE
[2017-08-09 20:45] VITALS: BP 123/63
--- NOTE | 2017-08-09 20:45 | NUR ---
RN NOTES RECEIVED PT FROM ER, TRANSFERRED TO BED SAFELY. PT IS AWAKE AND VERBALLY RESPONSIVE, A/O X1. DAUGHTER AT BEDSIDE. NO DISTRESS, NO SOB NOTED. RESPIRATION IS EVEN AND UNLABORED. ABDOMEN IS SOFT AND NON DISTENDED. DENIES N/V AT THIS TIME. IV SITE ON RAC INTACT AND PATENT, NO S/S OF INFILTRATION NOTED. BODY CHECK DONE. ALL NEEDS ATTENDED AND MET. KEPT CLEAN AND COMFORTABLE. CALL LIGHT WITHIN REACH. BED ON LOWEST LEVEL. SAFETY PRECAUTIONS OBSERVED. WILL CONT TO MONITOR.
[2017-08-09] MEDS ORDERED: METRONIDAZOLE 500MG/ NS 100ML 100 ML IV SCH (21:00)
[2017-08-09] MEDS: METRONIDAZOLE 500MG/ NS 100ML 100 ML IV SCH (21:46)
[2017-08-09] MEDS: LEVOFLOXACIN 750 MG /D5W 150ML 150 ML IV SCH (23:05)
--- NOTE | 2017-08-09 23:45 | NUR ---
SPOKE WITH DR. QUIÑONES REGARDING DIET ORDER, WITH N.O NOTED AND CARRIED OUT.
[2017-08-10] VITALS: BP 99/51
--- NOTE | 2017-08-10 00:39 | NUR ---
EKG WAS DONE, SINUS TACHY 98 AT THIS TIME. HR : 99 ON TEL MONITOR.
--- NOTE | 2017-08-10 00:39 | NUR ---
PT'S HEART RHYTHM SVT 170'S ON TELE MONITOR, PT IS ASYMPTOMATIC DENIES CHEST PAIN, NOT IN DISTRESS AND IN BED, RELAXED AND CALM AT THIS TIME. CHARGE NURSE IVANNA STARKS. EKG STAT ORDERED. AWAITING FOR RT
[2017-08-10] MEDS: ACETAMINOPHEN 325 MG TABLET PO PRN ×5 (00:45→19:42)
[2017-08-10 04:00] VITALS: BP 113/53
[2017-08-10] MEDS: METRONIDAZOLE 500MG/ NS 100ML 100 ML IV SCH ×3 (04:35→20:32)
--- NOTE | 2017-08-10 06:51 | NUR ---
MANAGER LANGUAGE NOTES PT IN BED, RESTING COMFORTABLY AT THIS TIME, AROUSES EASILY.NAURUAN SPEAKING , A/O X1. NO DISTRESS, NO SOB NOTED. RESPIRATION IS EVEN AND UNLABORED. SR 98 WITH PAC ON TELE MONITOR. ABDOMEN IS SOFT AND NON DISTENDED. NO C/O N/V AT THIS TIME. DENIES ANY CHEST PAIN AT THIS TIME. IV SITE ON RAC INTACT AND PATENT, NO S/S OF INFILTRATION NOTED. LEFT WITH CLEAN AND INTACT DRESSING. ALL NEEDS ATTENDED AND MET. KEPT CLEAN AND COMFORTABLE. CALL LIGHT WITHIN REACH. BED ON LOWEST LEVEL. SAFETY PRECAUTIONS OBSERVED. WILL ENDORSE TO NEXT SHIFT FOR EMILY. .
--- NOTE | 2017-08-10 07:10 | NUR ---
RN NOTES: PATIENT RESTING IN BED. NONLABORED BREATHING NOTED ON ROOM AIR. NO SIGNS OF DISTRESS. PATIENT DENIES PAIN AT THE MOMENT. NO FACIAL GRIMACING NOTED. PATIENT ON TELE WITH ST OF 110. BED IN LOWEST LOCKED POSITION. CALL LIGHT WITHIN REACH. WILL CONTINUE TO MONITOR
[2017-08-10 08:00] VITALS: BP 106/51
[2017-08-10] MEDS: PANTOPRAZOLE 40 MG VIAL IV SCH (08:15)
[2017-08-10] MEDS ORDERED: PANTOPRAZOLE 40 MG VIAL IV SCH (09:00)
[2017-08-10 14:54] LABS: CARBON DIOXIDE 16 mmol/L (21-32); CHLORIDE 105 mmol/L (98-107); CREATININE 0.7 mg/dL (0.6-1.3); GLUCOSE 94 mg/dL (74-106); POTASSIUM 2.9 mmol/L (3.5-5.1); SODIUM SERUM 133 mmol/L (136-145); UREA NITROGEN, BLOOD 20 mg/dL (7-18)
[2017-08-10] MEDS: POTASSIUM CHLORIDE 20 MEQ POWDER PACKET NG SCH ×3 (15:54→18:22)
[2017-08-10] MEDS: MORPHINE SULFATE INJ 4 MG/ML DISP.SYRIN IV PRN ×2 (15:57→20:29)
[2017-08-10 16:00] VITALS: BP 120/57
--- NOTE | 2017-08-10 19:30 | NUR ---
MS RN NOTES PT IN BED, RESTING COMFORTABLY AT THIS TIME, AROUSES EASILY.MOHAWK SPEAKING , A/O X2. NO DISTRESS, NO SOB NOTED. RESPIRATION IS EVEN AND UNLABORED. ABDOMEN IS SOFT AND NON DISTENDED. NO C/O N/V AT THIS TIME. DENIES ANY CHEST PAIN AT THIS TIME. IV SITE ON RAC INTACT AND PATENT, NO S/S OF INFILTRATION NOTED. LEFT WITH CLEAN AND INTACT DRESSING. KEPT CLEAN AND COMFORTABLE. CALL LIGHT WITHIN REACH. BED ON LOWEST LEVEL. SAFETY PRECAUTIONS OBSERVED. WILL CONTINUE TO MONITOR.
--- NOTE | 2017-08-10 19:30 | NUR ---
RN NOTES: PATIENT AOX2-3 , NAMIBIAN SPEAKING. PATIENT NONLABORED BREATHHING NOTED ON ROOM AIR. IV SITE PATENT AND INTACT. BMP RECHECKED TODAY PER DR LANCE ORDERS. POTASSIUM REPLACED PER PHARMACY. TYLENOL GIVEN DURING SHIFT TO HELP WITH THE CRAMPING. MORPHINE GIVEN TO PATIENT TO HELP WITH PAIN ON LLE. CAPILLARY REFILL LESS THAN 3 SECONDS, SOME PITTING EDEMA NOTED ON ANKLE AREA, 2+. PATIENT ABLE TO MOVE TOES, TOES PINK, PATIENT SENSORY ABILITY INTACT. SPOKE TO XOCHILT FRANCO, REGARDING THE PATIENT. DR MAGALLON TO REMOVE DRESSING "IN 2 WEEKS FROM 08/04/17 " PER DAUGHTER. BED IN LOWEST LOCKED POSITION. CALL LIGHT WITHIN REACH.
[2017-08-10 20:00] VITALS: BP 121/53
[2017-08-10 22:00] VITALS: BP 121/53
[2017-08-11] MEDS: MORPHINE SULFATE INJ 4 MG/ML DISP.SYRIN IV PRN ×3 (00:50→08:53)
--- NOTE | 2017-08-11 00:52 | NUR ---
RN NOTES: ADMINISTERED MORPHINE 2 MG IV FOR PAIN SCALED AT 9/10 OVER ABDOMEN. BP CHECKED AT 113/61, HR: 110. WILL CONT TO MONITOR.
[2017-08-11] MEDS: METRONIDAZOLE 500MG/ NS 100ML 100 ML IV SCH ×2 (04:42→14:23)
--- NOTE | 2017-08-11 06:39 | NUR ---
MS RN NOTE PATIENT STABLE AT THIS TIME. ALL NEEDS MET AND ATTENDED TO. WILL ENDORSE TO DAY SHIFT FOR EMILY.
[2017-08-11 06:51] LABS: BASOPHILS % (AUTO) 0.1 % (0.0-2.0); EOSINOPHILS # (AUTO) 0.1 /CMM (0.0-0.7); EOSINOPHILS % (AUTO) 0.3 % (0.0-6.0); HEMATOCRIT 30 % (33-45); LYMPHOCYTES # (AUTO) 1.3 /CMM (0.8-4.8); LYMPHOCYTES % (AUTO) 5.1 % (20.0-44.0); MEAN CORPUSCULAR HEMOGLOBIN 32 PG (26.0-33.0); MEAN CORPUSCULAR HGB CONC 34 g/dl (31.0-36.0); MEAN CORPUSCULAR VOLUME 95 fL (82-100); MONOCYTES # (AUTO) 0.5 /CMM (0.1-1.30); MONOCYTES % (AUTO) 2.1 % (2.0-12.0); NEUTROPHILS # (AUTO) 23.5 /CMM (1.8-8.9); NEUTROPHILS % (AUTO) 92.4 % (43.0-81.0); PLATELET COUNT (AUTO) 220 /CMM (150-450); RDW COEFFICIENT OF VARIATION 17.6 (11.5-15.0); RED BLOOD CELL COUNT(AUTO) 3.12 MIL/uL (4.0-5.2); WHITE BLOOD COUNT (AUTO) 25.4 K/uL (4.3-11.0)
[2017-08-11 07:30] LABS: CALCIUM, SERUM 8.4 mg/dL (8.5-10.1); CARBON DIOXIDE 16 mmol/L (21-32); CHLORIDE 105 mmol/L (98-107); CREATININE 0.7 mg/dL (0.6-1.3); GLUCOSE 89 mg/dL (74-106); MAGNESIUM 1.4 mg/dL (1.8-2.4); PHOSPHORUS 2.5 mg/dL (2.5-4.9); POTASSIUM 4.1 mmol/L (3.5-5.1); SODIUM SERUM 135 mmol/L (136-145); UREA NITROGEN, BLOOD 19 mg/dL (7-18)
--- NOTE | 2017-08-11 07:53 | NUR ---
MS RN OPENING NOTE RECEIVED BEDSIDE SBAR REPORT ON THE PATIENT. PATIENT IS A/O X3,ASLEEP, EASILY AWAKEN. PATIENT IS MAINLY DJIB[place] SPEAKING WITH LITTLE UNDERSTANDING OF [place]. CHEST IS RISING EQUALLY BILATERALLY. NO S/S OF DISTRESS. DENIED PAIN AT THIS TIME. SPO2 IS 96% ON ROOM AIR. ALL NEEDS ARE MET AT THIS TIME. PATIENT IS IN BED. BED IS LOCKED IN THE LOWEST POSITION, SIDE RAILS ARE P X3, BED ALARM IS ON. CALL LIGHT WITHIN REACH. PATIENT EDUCATED TO USE THE CALL LIGHT TO CALL FOR ASSISTANCE. PATIENT VERBALIZED UNDERSTANDING. WILL CONTINUE TO ASSESS/MONITOR THROUGHOUT THE SHIFT.
[2017-08-11 08:00] VITALS: BP 113/70
[2017-08-11] MEDS: PANTOPRAZOLE 40 MG VIAL IV SCH (08:58)
[2017-08-11] MEDS: Magnesium 1GM/D5W 100ML PREMIX 100 ML IV SCH ×4 (10:56→13:02)
--- NOTE | 2017-08-11 11:30 | NUR ---
C-DIFF STOOL SAMPLE OBTAINED AND LABELED. AWAITING FOR THE LAB TO MARBLE HELPER.
--- NOTE | 2017-08-11 11:30 | NUR ---
CDIFF FORM FILLED OUT, SIGNED AND CO-SIGNED BY CHARGE NURSE LINDA JOE. PLACED IN THE CHART
--- NOTE | 2017-08-11 12:20 | NUR ---
SPOKE TO LAB ON THE PHONE. LAB OBTAINED THE STOOL SAMPLE.
[2017-08-11 16:00] VITALS: BP 93/51
--- NOTE | 2017-08-11 16:21 | NUR ---
SPOKE TO EREN EASON AT THE LAB. VERIFIED THAT THE LAB RECEIVED THE C-DIFF ORDER AND HAS THE STOOL SAMPLE.
--- NOTE | 2017-08-11 17:56 | NUR ---
PER DIETITIAN ADVICE PATIENT TO RECEIVE BOOST BREEZE BID.
--- NOTE | 2017-08-11 18:39 | NUR ---
MS RN CLOSING NOTE PATIENT IS A/O X3,ASLEEP, EASILY AWAKEN. PATIENT IS MAINLY [place] SPEAKING WITH LITTLE UNDERSTANDING OF HEBREW. FAMILY AT THE BEDSIDE. CHEST IS RISING EQUALLY BILATERALLY. NO S/S OF DISTRESS. DENIED PAIN AT THIS TIME. SPO2 IS 97% ON ROOM AIR. ALL NEEDS ARE MET AT THIS TIME. PATIENT IS IN BED. BED IS LOCKED IN THE LOWEST POSITION, SIDE RAILS ARE P X3, BED ALARM IS ON. CALL LIGHT WITHIN REACH. PATIENT/FAMILY EDUCATED TO USE THE CALL LIGHT TO CALL FOR ASSISTANCE. PATIENT/FAMILY VERBALIZED UNDERSTANDING. WILL ENDORSE TOT HE MUSEUM ARCHIVIST FOR EMILY.
--- NOTE | 2017-08-11 19:30 | NUR ---
MS/PSYCHIATRIC AIDES TEACHER; RECEIVED PT IN BED AWAKE, ALERT AND VERBALLY RESPONSIVE IN WELSH, BREATHING NON LABORED. HL ON RAC # 20 INTACT AND PATENT. BED ON LOWER POSITION AND LOCKED FOR SAFETY. SIDE RAILS ARE UP FOR SAFETY. CALL LIGHT WITHIN REACH.
[2017-08-11 20:00] VITALS: BP 116/84
[2017-08-11] MEDS: LEVOFLOXACIN 750 MG /D5W 150ML 150 ML IV SCH (21:57)
[2017-08-11] MEDS ORDERED: VANCOMYCIN 1 GM in IV D5W 250 ML IV SCH (23:00)
[2017-08-11] MEDS: VANCOMYCIN HCL 125 MG/2.5 ML ORAL.SUSP PO SCH (23:13)
--- NOTE | 2017-08-11 23:35 | NUR ---
MS/CAMPUS ADMINISTRATOR; DR. CALLE CAME AND CHECKED THE PT. AND HE KNOWS PT IN ABD. PAIN. BP LA 108/ 58 DC 114, O2 SAT 97 %. I TOLD THE CHARGE NURSE PT. IN PAIN WITH THE ABOVE VITAL SIGNS AND OK TO GIVE MORPHINE. SO I TOLD MY RN WHO IS COVERING ME TO GIVE PAIN SHOT TO THIS PT.
[2017-08-12] MEDS: PIPERACILLIN /TAZOBACTAM 3.375 G in IV D5W 50 ML IV SCH ×5 (00:07→23:56)
[2017-08-12] MEDS: MORPHINE SULFATE INJ 4 MG/ML DISP.SYRIN IV PRN ×3 (00:07→13:47)
[2017-08-12 06:58] LABS: EOSINOPHILS # (AUTO) 0.1 /CMM (0.0-0.7); EOSINOPHILS % (AUTO) 0.6 % (0.0-6.0); HEMATOCRIT 27 % (33-45); HEMOGLOBIN 8.8 g/dL (11.5-14.8); LYMPHOCYTES # (AUTO) 1.1 /CMM (0.8-4.8); LYMPHOCYTES % (AUTO) 4.9 % (20.0-44.0); MEAN CORPUSCULAR HEMOGLOBIN 31 PG (26.0-33.0); MEAN CORPUSCULAR HGB CONC 33 g/dl (31.0-36.0); MEAN CORPUSCULAR VOLUME 96 fL (82-100); MONOCYTES # (AUTO) 0.4 /CMM (0.1-1.30); NEUTROPHILS # (AUTO) 20.6 /CMM (1.8-8.9); NEUTROPHILS % (AUTO) 92.5 % (43.0-81.0); PLATELET COUNT (AUTO) 255 /CMM (150-450); RDW COEFFICIENT OF VARIATION 18.5 (11.5-15.0); RED BLOOD CELL COUNT(AUTO) 2.81 MIL/uL (4.0-5.2); WHITE BLOOD COUNT (AUTO) 22.2 K/uL (4.3-11.0)
--- NOTE | 2017-08-12 07:15 | NUR ---
MS/SUPERVISOR NET MAKING; SLEPT FAIRLY. BREATHING NON LABORED. WILL CONTINUE TO MONITOR. WILL ENDORSE TO THE DAY SHIFT NURSE.
[2017-08-12 07:27] LABS: CALCIUM, SERUM 7.9 mg/dL (8.5-10.1); CARBON DIOXIDE 18 mmol/L (21-32); CHLORIDE 100 mmol/L (98-107); CREATININE 0.7 mg/dL (0.6-1.3); GLUCOSE 96 mg/dL (74-106); MAGNESIUM 1.6 mg/dL (1.8-2.4); PHOSPHORUS 2.4 mg/dL (2.5-4.9); POTASSIUM 3.7 mmol/L (3.5-5.1); SODIUM SERUM 126 mmol/L (136-145); UREA NITROGEN, BLOOD 18 mg/dL (7-18)
[2017-08-12] MEDS ORDERED: FEE PK DOSING 1 MIN EA MC ONE (07:33)
--- NOTE | 2017-08-12 07:45 | NUR ---
RN OPENING NOTES RECEIVED PT. PT STABLE AND RESTING IN BED. A/OX3 BUT PRIMARILY SAO TOMEAN SPEAKING. NO S/S OF RESPIRATORY DISTRESS. PT C/O PAIN 03/15 LLE, WILL ADDRESS PHARMACOLOGICALLY. IV ACCESS LOCATED ON RIGHT AC 20 G SL. SAFETY MEASURES IN PLACE, CALL LIGHT WITHIN REACH. WILL CONTINUE TO MONITOR.
[2017-08-12 08:00] VITALS: BP 93/50
[2017-08-12] MEDS: PANTOPRAZOLE 40 MG VIAL IV SCH (09:07)
[2017-08-12] MEDS: VANCOMYCIN HCL 125 MG/2.5 ML ORAL.SUSP PO SCH ×4 (09:08→21:14)
[2017-08-12] MEDS: BOOST FOOD- BERRY 237 ML BOX PO SCH ×3 (11:37→17:10)
[2017-08-12] MEDS: Magnesium 1GM/D5W 100ML PREMIX 100 ML IV SCH ×4 (11:37→16:33)
[2017-08-12] MEDS ORDERED: Sodium Phosphate 15 MMOL in IV D5W 250 ML IV ONE (12:30)
[2017-08-12 13:44] LABS: BAND % (MANUAL) 2 % (0.0-5.0); LYMPHOCYTES % (MANUAL) 4 % (16-48); MONOCYTES % (MANUAL) 7 % (0-11.0); NEUTROPHILS % (MANUAL) 87 (42-76)
[2017-08-12 16:00] VITALS: BP 106/61
--- NOTE | 2017-08-12 18:39 | NUR ---
RN CLOSING NOTES PT IN BED SLEEPING. NO S/S OF RESPIRATORY DISTRESS/SOB. PT SCHEDULED FOR EGD/COLONOSCOPY TMR, CONSENTS OBTAINED. ALL PT NEEDS ANTICIPATED AND MET, SAFETY MEASURES IN PLACE, CALL LIGHT IN REACH. WILL ENDORSE TO MAGNETIZER FOR EMILY.
--- NOTE | 2017-08-12 20:00 | NUR ---
MS RN NOTE: PATIENT RESTING IN BED, NO ACUTE DISTRESS NOTED. BREATHING EVEN AND UNLABORED, NO SOB NOTED. RECTAL TUBE WITHOUT ANY STOOL AND PATIENT NOTED WITH STOOL IN BED. NEW RECTAL TUBE INSERTED. IV TO RAC IN PLACE, INFUSING MAGNESIUM ORDER. BED LOCKED AND IN LOWEST POSITION, CALL LIGHT IN REACH. WILL CONTINUE TO MONITOR.
[2017-08-12] MEDS: VANCOMYCIN 0.75 GM in IV D5W 250 ML IV SCH (21:14)
[2017-08-12] MEDS: ACETAMINOPHEN 325 MG TABLET PO PRN (21:14)
--- NOTE | 2017-08-12 21:15 | NUR ---
MS RN NOTE: PATIENT COMPLAINS OF GENERALIZED PAIN, TYLENOL 650MG ORAL GIVEN PER MD ORDER. WILL CONTINUE TO MONITOR.
[2017-08-12 21:47] VITALS: BP 97/54
--- NOTE | 2017-08-13 00:30 | NUR ---
MS RN NOTE: PATIENT IV TO RAC LEAKING. NEW IV TO LEFT FOREARM #22 WITHOUT COMPLICATIONS AND GOOD BLOOD RETURN. IV TO RAC REMOVED, COVERED WITH GAUZE, PRESSURE APPLIED, AND SECURED WITH TAPE. WILL CONTINUE TO MONITOR.
--- NOTE | 2017-08-13 02:15 | NUR ---
MS RN NOTE: NOTED PATIENT STILL WITHOUT OUTPUT FROM RECTAL TUBE. RECTAL TUBE OUT AGAIN. PATIENT CLEANED AND DIAPER PLACE. WILL CONTINUE TO MONITOR.
[2017-08-13] MEDS: IV NS 0.9% 1,000 ML IV PRN (04:17)
[2017-08-13] MEDS: ACETAMINOPHEN 325 MG TABLET PO PRN ×4 (04:17→23:09)
--- NOTE | 2017-08-13 04:30 | NUR ---
MS RN NOTE: PATIENT COMPLAINS OF GENERALIZED PAIN, TYLENOL 650MG ORAL GIVEN PER MD ORDER. WILL CONTINUE TO MONITOR.
--- NOTE | 2017-08-13 06:45 | NUR ---
MS RN NOTE: PATIENT RESTING IN BED, NO ACUTE DISTRESS NOTED. BREATHING EVEN AND UNLABORED, NO SOB NOTED. IV TO LFA IN PLACE. BED LOCKED AND IN LOWEST POSITION, CALL LIGHT IN REACH. WILL ENDORSE TO DAY NURSE TO CONTINUE WITH PLAN OF CARE.
[2017-08-13 06:46] LABS: EOSINOPHILS # (AUTO) 0.2 /CMM (0.0-0.7); HEMATOCRIT 24 % (33-45); HEMOGLOBIN 7.9 g/dL (11.5-14.8); LYMPHOCYTES # (AUTO) 1.1 /CMM (0.8-4.8); LYMPHOCYTES % (AUTO) 6.7 % (20.0-44.0); MEAN CORPUSCULAR HEMOGLOBIN 32 PG (26.0-33.0); MEAN CORPUSCULAR HGB CONC 33 g/dl (31.0-36.0); MEAN CORPUSCULAR VOLUME 95 fL (82-100); MONOCYTES # (AUTO) 0.5 /CMM (0.1-1.30); MONOCYTES % (AUTO) 3.1 % (2.0-12.0); NEUTROPHILS # (AUTO) 15.2 /CMM (1.8-8.9); NEUTROPHILS % (AUTO) 89.2 % (43.0-81.0); PLATELET COUNT (AUTO) 265 /CMM (150-450); RDW COEFFICIENT OF VARIATION 18.3 (11.5-15.0); RED BLOOD CELL COUNT(AUTO) 2.49 MIL/uL (4.0-5.2)
[2017-08-13] MEDS: PIPERACILLIN /TAZOBACTAM 3.375 G in IV D5W 50 ML IV SCH ×3 (07:14→20:18)
[2017-08-13 07:18] LABS: CALCIUM, SERUM 7.3 mg/dL (8.5-10.1); CARBON DIOXIDE 19 mmol/L (21-32); CHLORIDE 102 mmol/L (98-107); CREATININE 0.7 mg/dL (0.6-1.3); GLUCOSE 102 mg/dL (74-106); MAGNESIUM 1.8 mg/dL (1.8-2.4); PHOSPHORUS 3.9 mg/dL (2.5-4.9); POTASSIUM 3.4 mmol/L (3.5-5.1); SODIUM SERUM 131 mmol/L (136-145); UREA NITROGEN, BLOOD 12 mg/dL (7-18)
--- NOTE | 2017-08-13 07:50 | NUR ---
RN OPENING NOTES PATIENT RESTING COMFORTABLY IN BED. AOX2/3 AMHARIC SPEAKING. RESPIRATIONS EVEN AND UNLABORED. NO ACUTE DISTRESS. COMPLAINING OF SOME ABDOMINAL PAIN. DENIES SOB AND CP. LEFT FOREARM IV ACCESS PATENT AND INTACT WITH NS RUNNING AT 100ML/HR. LEFT LEG IMMOBILIZER S/P LEFT FEMUR SX. LOOSE STOOL. STOOL CULTURE NEGATIVE. C DIFF NEGATIVE. BED LOCKED IN THE LOWEST POSITION WITH SIDE RAIL UP X2. CALL LIGHT WITHIN REACH. WILL CONTINUE TO MONITOR, ASSESS AND EDUCATE PATIENT THROUGHOUT SHIFT.
[2017-08-13 08:00] VITALS: BP 90/50
[2017-08-13] MEDS: BOOST FOOD- BERRY 237 ML BOX PO SCH ×3 (08:45→17:07)
[2017-08-13] MEDS: VANCOMYCIN HCL 125 MG/2.5 ML ORAL.SUSP PO SCH ×4 (08:46→20:11)
[2017-08-13] MEDS: PANTOPRAZOLE 40 MG VIAL IV SCH (08:46)
[2017-08-13] MEDS: LACTOBACILLUS RHAMNOSUS GG 1 EACH CAP.SPRINK PO SCH ×2 (11:14→17:05)
[2017-08-13] MEDS: VANCOMYCIN 0.75 GM in IV D5W 250 ML IV SCH (11:14)
[2017-08-13] MEDS ORDERED: POTASSIUM CHLORIDE 20 MEQ TAB.PRT.SR PO SCH (11:30)
[2017-08-13] MEDS: POTASSIUM CL. PREMIX PERIPHER. 50 ML IV SCH ×2 (15:30→17:07)
[2017-08-13 16:00] VITALS: BP 96/52
[2017-08-13] MEDS: Z GUARD REMEDY 2 OZ OINT TP SCH (17:07)
--- NOTE | 2017-08-13 19:30 | NUR ---
RN CLOSING NTOES PATEINT IN STABLE CONDITION. AOX2/3. NO ACUTE DISTRESS RESPIRATIONS EVEN AND UNLABORED. DENIES ANY PAIN, CP OR SOB. CALL LIGHT WITHIN REACH. WILL ENDORSE TO NIGHT RN FOR EMILY.
--- NOTE | 2017-08-13 19:35 | NUR ---
RM MS OPENING NOTES RECEIVED PT IN BED,ALERT,AWAKE,RESPONSIVE,ON ROOM AIR,NO SOB,NO APPARENT DISTRESS NOTED .IV SITE INTACT,PATENT.CALL LIGHT WITHIN REACH ATTENDED ALL NEEDS WILL CONTINUE TO MONITOR.
[2017-08-13 20:00] VITALS: BP 93/55
[2017-08-13] MEDS: MORPHINE SULFATE INJ 4 MG/ML DISP.SYRIN IV PRN (21:02)
[2017-08-13] MEDS: LEVOFLOXACIN 750 MG /D5W 150ML 150 ML IV SCH (22:39)
[2017-08-14] MEDS: PIPERACILLIN /TAZOBACTAM 3.375 G in IV D5W 50 ML IV SCH ×4 (00:26→17:52)
[2017-08-14] MEDS: MORPHINE SULFATE INJ 4 MG/ML DISP.SYRIN IV PRN ×4 (03:30→22:26)
[2017-08-14] MEDS: IV NS 0.9% 1,000 ML IV PRN (03:30)
[2017-08-14] MEDS: VANCOMYCIN 0.75 GM in IV D5W 250 ML IV SCH ×2 (05:13→22:29)
[2017-08-14] MEDS: ACETAMINOPHEN 325 MG TABLET PO PRN ×2 (05:17→13:57)
[2017-08-14 06:07] LABS: CALCIUM, SERUM 7.5 mg/dL (8.5-10.1); CARBON DIOXIDE 20 mmol/L (21-32); CHLORIDE 105 mmol/L (98-107); CREATININE 0.6 mg/dL (0.6-1.3); GLUCOSE 79 mg/dL (74-106); POTASSIUM 3.5 mmol/L (3.5-5.1); SODIUM SERUM 133 mmol/L (136-145); UREA NITROGEN, BLOOD 8 mg/dL (7-18)
--- NOTE | 2017-08-14 07:08 | NUR ---
MS RN CLOSING NOTES PT IN BED AWAKE, ON ROOM AIR, NO RESP DISTRESS NOTED.DENIES ANY PAIN OR DISCOMFORT.CALL LIGHT WITHIN REACH.ATTENDED ALL NEEDS.WILL CONTINUE TO MONITOR ACCORDINGLY
[2017-08-14 08:00] VITALS: BP 166/82
--- NOTE | 2017-08-14 08:00 | NUR ---
m/s lead furnace operator: initial assessment received pt in bed awake, a/o2-3; polish speaking only with little turkmen. no c/o pain or any discomfort. no diarrhea noted at this time. instructed to call for assistance. will continue to monitor.
[2017-08-14] MEDS: LACTOBACILLUS RHAMNOSUS GG 1 EACH CAP.SPRINK PO SCH ×2 (08:23→16:51)
[2017-08-14] MEDS: BOOST FOOD- BERRY 237 ML BOX PO SCH ×3 (08:23→16:39)
[2017-08-14] MEDS: VANCOMYCIN HCL 125 MG/2.5 ML ORAL.SUSP PO SCH ×4 (08:23→22:33)
[2017-08-14 08:25] LABS: EOSINOPHILS # (AUTO) 0.2 /CMM (0.0-0.7); EOSINOPHILS % (AUTO) 1.3 % (0.0-6.0); HEMATOCRIT 24 % (33-45); HEMOGLOBIN 7.9 g/dL (11.5-14.8); LYMPHOCYTES % (AUTO) 6.3 % (20.0-44.0); MEAN CORPUSCULAR HEMOGLOBIN 32 PG (26.0-33.0); MEAN CORPUSCULAR HGB CONC 34 g/dl (31.0-36.0); MEAN CORPUSCULAR VOLUME 95 fL (82-100); MONOCYTES # (AUTO) 0.4 /CMM (0.1-1.30); MONOCYTES % (AUTO) 2.7 % (2.0-12.0); NEUTROPHILS # (AUTO) 14.8 /CMM (1.8-8.9); NEUTROPHILS % (AUTO) 89.7 % (43.0-81.0); PLATELET COUNT (AUTO) 295 /CMM (150-450); RDW COEFFICIENT OF VARIATION 18.2 (11.5-15.0); RED BLOOD CELL COUNT(AUTO) 2.47 MIL/uL (4.0-5.2); WHITE BLOOD COUNT (AUTO) 16.5 K/uL (4.3-11.0)
[2017-08-14] MEDS: Z GUARD REMEDY 2 OZ OINT TP SCH (09:03)
[2017-08-14 09:21] LABS: MAGNESIUM 1.4 mg/dL (1.8-2.4); PHOSPHORUS 2.7 mg/dL (2.5-4.9)
[2017-08-14] MEDS: PANTOPRAZOLE 40 MG VIAL IV SCH (09:43)
--- NOTE | 2017-08-14 10:47 | NUR ---
m/s test eng: notes c/o 04/15 abdominal pain, medicated with morphine 2mg ivp by rn. instructed to call for assistance.
--- NOTE | 2017-08-14 11:47 | NUR ---
m/s cone worker: notes pt verbalized relief of pain. instructed to call for assistance. will continue to monitor.
--- NOTE | 2017-08-14 13:07 | NUR ---
m/s dental chair assembler: md visit seen and examined by dr. hooker with new orders. orders acknowledged.
[2017-08-14] MEDS: Magnesium 1GM/D5W 100ML PREMIX 100 ML IV SCH ×3 (13:53→16:53)
--- NOTE | 2017-08-14 15:00 | NUR ---
m/s pipe organ tuner and repairer: notes resting comfortable in bed with no distress noted. will continue to monitor.
[2017-08-14 16:00] VITALS: BP 100/56
--- NOTE | 2017-08-14 18:02 | NUR ---
m/s decision support manager: notes c/o 04/15 abdominal pain, medicated with morphine 2mg ivp by rn. instructed to call for assistance.
--- NOTE | 2017-08-14 18:32 | NUR ---
m/s ui engineer: notes pt resting comfortable in bed with eyes close. no s/s or resp. distress noted. will continue to monitor. call light within reach.
--- NOTE | 2017-08-14 20:00 | NUR ---
MS RN OPENING NOTES: RECEIVED PATIENT FROM DAY SHIFT, AWAKE, WITH COMPLAINS OF MINIMAL PAIN ON THE ABDOMEN. PATIENT WITH IVF ON RIGHT HAND G#22 WITH NS AT 100 ML/HR. NO SIGNS OF REDNESS OR PHLEBITIS ON SITE, NO INFLAMMATION NOTED THIS TIME. PATIENT IS CITIZEN OF [place] SPEAKING HOWEVER ABLE TO CONVEY HER NEEDS AT LEAST. PLACED BED IN LOCKED POSITION, PLACED CALL LIGHT WITHIN REACH. PROVIDED FLUIDS TOLERATED. WILL CONTINUE TO MONITOR PATIENT.
[2017-08-14 20:30] VITALS: BP 109/64
--- NOTE | 2017-08-14 22:36 | NUR ---
MS RN NOTES: PATIENT COMPLAINED OF ABDOMINAL PAIN, REQUESTED FOR MORPHINE MEDICATION GIVEN MORPHINE 2MG THROUGH IV. WILL CONTINUE TO MONITOR PAIN STATUS. MORPHINE PULLED OUT FROM OMNICELL IS 4MG PREPARATION WASTED THE OTHER 2 MG WITH ANOTHER RN.
[2017-08-15] MEDS: PIPERACILLIN /TAZOBACTAM 3.375 G in IV D5W 50 ML IV SCH ×3 (01:21→12:01)
[2017-08-15] MEDS: IV NS 0.9% 1,000 ML IV PRN (01:25)
[2017-08-15] MEDS: ACETAMINOPHEN 325 MG TABLET PO PRN ×4 (01:28→22:33)
[2017-08-15] MEDS: MORPHINE SULFATE INJ 4 MG/ML DISP.SYRIN IV PRN ×2 (03:36→10:31)
--- NOTE | 2017-08-15 03:36 | NUR ---
MS RN NOTES: PATIENT COMPLAINED OF ABDOMINAL PAIN AGAIN AT THIS TIME, REQUESTED FOR MORPHINE MEDICATION GIVEN MORPHINE 2MG THROUGH IV. WILL CONTINUE TO MONITOR PAIN STATUS. MORPHINE PULLED OUT FROM OMNICELL IS 4MG PREPARATION WASTED THE OTHER 2 MG WITH ANOTHER RN.
--- NOTE | 2017-08-15 06:30 | NUR ---
MS/FARM CROPS TEACHER; C/O ABDOMINAL PAIN AGAIN . BP 102/53 , P 91. TYLENOL 650 MG PO Q6 PRN GIVEN AT 0629.
[2017-08-15 06:36] LABS: BASOPHILS % (AUTO) 0.1 % (0.0-2.0); EOSINOPHILS # (AUTO) 0.3 /CMM (0.0-0.7); EOSINOPHILS % (AUTO) 1.3 % (0.0-6.0); HEMATOCRIT 28 % (33-45); HEMOGLOBIN 9.5 g/dL (11.5-14.8); LYMPHOCYTES # (AUTO) 1.1 /CMM (0.8-4.8); LYMPHOCYTES % (AUTO) 4.5 % (20.0-44.0); MEAN CORPUSCULAR HEMOGLOBIN 32 PG (26.0-33.0); MEAN CORPUSCULAR HGB CONC 34 g/dl (31.0-36.0); MEAN CORPUSCULAR VOLUME 96 fL (82-100); MONOCYTES # (AUTO) 0.7 /CMM (0.1-1.30); MONOCYTES % (AUTO) 2.7 % (2.0-12.0); NEUTROPHILS # (AUTO) 21.9 /CMM (1.8-8.9); NEUTROPHILS % (AUTO) 91.4 % (43.0-81.0); PLATELET COUNT (AUTO) 353 /CMM (150-450); RDW COEFFICIENT OF VARIATION 18.8 (11.5-15.0); RED BLOOD CELL COUNT(AUTO) 2.94 MIL/uL (4.0-5.2)
--- NOTE | 2017-08-15 07:03 | NUR ---
MS RN CLOSING NOTES: PATIENT IN BED, AWAKE, IVF ON GOING ON RIGHT HAND G#22, NO SIGNS OF REDNESS, INFECTION OR PHLEBITIS THIS TIME. PATIENT KEPT WARM AND DRY AND COMFORTABLE. ASSISTED PATIENT FOR SELF CARE ACTIVITIES. WILL ENDORSE PATIENT TO DAY SHIFT NURSE.
[2017-08-15 07:29] LABS: CALCIUM, SERUM 7.5 mg/dL (8.5-10.1); CARBON DIOXIDE 17 mmol/L (21-32); CHLORIDE 105 mmol/L (98-107); CREATININE 0.6 mg/dL (0.6-1.3); GLUCOSE 106 mg/dL (74-106); MAGNESIUM 1.7 mg/dL (1.8-2.4); PHOSPHORUS 2.8 mg/dL (2.5-4.9); POTASSIUM 3.1 mmol/L (3.5-5.1); SODIUM SERUM 133 mmol/L (136-145); UREA NITROGEN, BLOOD 6 mg/dL (7-18)
[2017-08-15 08:00] VITALS: BP 105/67
[2017-08-15] MEDS: PANTOPRAZOLE 40 MG VIAL IV SCH (08:20)
[2017-08-15] MEDS: LACTOBACILLUS RHAMNOSUS GG 1 EACH CAP.SPRINK PO SCH ×2 (08:21→16:17)
[2017-08-15] MEDS: Z GUARD REMEDY 2 OZ OINT TP SCH (08:22)
[2017-08-15] MEDS: BOOST FOOD- BERRY 237 ML BOX PO SCH ×3 (08:47→16:18)
[2017-08-15 08:59] LABS: BAND % (MANUAL) 4 % (0.0-5.0); LYMPHOCYTES % (MANUAL) 5 % (16-48); MONOCYTES % (MANUAL) 2 % (0-11.0); NEUTROPHILS % (MANUAL) 89 (42-76)
[2017-08-15] MEDS: VANCOMYCIN HCL 125 MG/2.5 ML ORAL.SUSP PO SCH ×4 (09:06→22:30)
[2017-08-15] MEDS: Magnesium 1GM/D5W 100ML PREMIX 100 ML IV SCH ×2 (11:10→12:22)
[2017-08-15] MEDS: POTASSIUM CHLORIDE 20 MEQ TAB.PRT.SR PO SCH ×2 (11:10→12:01)
[2017-08-15] MEDS ORDERED: MORPHINE SULFATE INJ 4 MG/ML DISP.SYRIN IV PRN ×2 (14:00→15:30)
[2017-08-15 16:00] VITALS: BP 111/60
[2017-08-15] MEDS: METRONIDAZOLE 500MG/ NS 100ML 500 MG in PREMIX 1 EA IV SCH ×2 (16:17→21:54)
[2017-08-15] MEDS: VANCOMYCIN 0.75 GM in IV D5W 250 ML IV SCH (16:17)
[2017-08-15] MEDS ORDERED: MEROPENEM 1 G in IV NS 0.9% 100 ML IV SCH (16:30)
[2017-08-15] MEDS: MEROPENEM 1 G in IV NS 0.9% 100 ML IV SCH (17:02)
--- NOTE | 2017-08-15 19:35 | NUR ---
MS/CHEMICAL PRODUCTION MACHINE OPERATOR; RECEIVED PT IN BED AWAKE, ALERT AND VERBALLY RESPONSIVE. PT'S DAUGHTER AT THE BEDSIDE. BREATHING NON LABORED. IVF ON PROGRESS ON RT HAND.
--- NOTE | 2017-08-15 19:35 | NUR ---
MS/BALLOON DESIGN PRINTER; RECEIVED PT SITTING IN BED WITH DAUGHTER PUTTING DRESSED TO HER MOTHER READY FOR DC. DENIES PAIN. HL HAS BEEN DC BY THE DAY SHIFT RN . EXIT CARE SIGNED BY THE DAUGHTER AND ALSO PRESCRIPTION WAS GIVEN TO THE DAUGHTER BY THE DAY SHIFT RN. BED BATH WAS GIVING BY THE TIM DIAL.
--- NOTE | 2017-08-15 19:40 | NUR ---
MS/PROGRAM PROJECT ANALYST; PT DC TO HOME ACCOMPANIED BY THE INDIRECT FIRE INFANTRYMAN TO THE LOBBY VIA WHEELCHAIR AND PT'S DAUGHTER. Addendum: 08/16/17 at 0247 by YVON CROCKETT LVN DISREGARD ABOVE NOTES IT IS AN ERROR. WRONG PT.
[2017-08-15 20:00] VITALS: BP 100/50
--- NOTE | 2017-08-15 22:35 | NUR ---
MS/WOOL HAT HYDRAULICKER; PT C/O ABDOMINAL PAIN TYLENOL 650 MG PO Q6 PRN GIVEN ORDERED. ABLE TO SWALLOW WITHOUT PROBLEM.
--- NOTE | 2017-08-16 02:15 | NUR ---
MS/TOW TRUCK DRIVER; PT C/O PAIN IV SITE ON RT HAND. NEW IV SITE STARTED ON RAC # 22 AND IVF RESUMED.
[2017-08-16] MEDS: METRONIDAZOLE 500MG/ NS 100ML 500 MG in PREMIX 1 EA IV SCH ×2 (05:14→12:30)
[2017-08-16] MEDS: ACETAMINOPHEN 325 MG TABLET PO PRN ×3 (06:29→18:47)
[2017-08-16] MEDS: MEROPENEM 1 G in IV NS 0.9% 100 ML IV SCH ×2 (06:40→17:22)
--- NOTE | 2017-08-16 07:00 | NUR ---
MS/MEDICAL PROFESSIONALS; SLEPT FAIRLY. IVF ON PROGRESS. STILL WITH DIARRHEA. AM CARE DONE BY THE ASSISTANT PRODUCTION EDITOR. TURNED AND REPOSITIONED. WILL ENDORSE TO THE DAY SHIFT RN FOR CONTINUITY OF CARE.
[2017-08-16 08:00] VITALS: BP 110/59
[2017-08-16] MEDS: PANTOPRAZOLE 40 MG VIAL IV SCH (08:59)
[2017-08-16] MEDS: BOOST FOOD- BERRY 237 ML BOX PO SCH ×3 (08:59→17:00)
[2017-08-16] MEDS: VANCOMYCIN HCL 125 MG/2.5 ML ORAL.SUSP PO SCH ×4 (08:59→22:02)
[2017-08-16] MEDS: LACTOBACILLUS RHAMNOSUS GG 1 EACH CAP.SPRINK PO SCH ×2 (08:59→17:22)
[2017-08-16] MEDS: Z GUARD REMEDY 2 OZ OINT TP SCH (09:02)
[2017-08-16] MEDS: VANCOMYCIN 0.75 GM in IV D5W 250 ML IV SCH (10:22)
--- NOTE | 2017-08-16 11:08 | NUR ---
RN OPENING NOTES RECEIVED PT. PT IS STABLE AND RESTING IN BED. A/OX3, PT IS LAO SPEAKING ONLY. NO S/S OF RESP DISTRESS/SOB. PT HAS C/O MILD PAIN IN EPIGASTRIC REGION, WILL ADDRESS. IV ACCESS LOCATED ON RIGHT AC 22G RUNNING NS AT 50 ML/HR. SAFETY MEASURES IN PLACE, CALL LIGHT WITHIN REACH. WILL CONTINUE TO MONITOR.
[2017-08-16 11:44] LABS: CALCIUM, SERUM 7.5 mg/dL (8.5-10.1); CARBON DIOXIDE 19 mmol/L (21-32); CHLORIDE 108 mmol/L (98-107); CREATININE 0.7 mg/dL (0.6-1.3); GLUCOSE 94 mg/dL (74-106); MAGNESIUM 1.8 mg/dL (1.8-2.4); PHOSPHORUS 2.4 mg/dL (2.5-4.9); POTASSIUM 3.3 mmol/L (3.5-5.1); SODIUM SERUM 136 mmol/L (136-145); UREA NITROGEN, BLOOD 7 mg/dL (7-18)
[2017-08-16 12:27] LABS: BASOPHILS % (AUTO) 0.2 % (0.0-2.0); EOSINOPHILS % (AUTO) 0.3 % (0.0-6.0); HEMATOCRIT 27 % (33-45); LYMPHOCYTES # (AUTO) 0.8 /CMM (0.8-4.8); LYMPHOCYTES % (AUTO) 7.6 % (20.0-44.0); MEAN CORPUSCULAR HEMOGLOBIN 32 PG (26.0-33.0); MEAN CORPUSCULAR HGB CONC 34 g/dl (31.0-36.0); MEAN CORPUSCULAR VOLUME 95 fL (82-100); MONOCYTES # (AUTO) 0.4 /CMM (0.1-1.30); MONOCYTES % (AUTO) 3.5 % (2.0-12.0); NEUTROPHILS # (AUTO) 9.8 /CMM (1.8-8.9); NEUTROPHILS % (AUTO) 88.4 % (43.0-81.0); PLATELET COUNT (AUTO) 424 /CMM (150-450); RDW COEFFICIENT OF VARIATION 18.3 (11.5-15.0); RED BLOOD CELL COUNT(AUTO) 2.79 MIL/uL (4.0-5.2)
[2017-08-16] MEDS: Potassium Phosphate meq 11 MEQ in IV D5W 100 ML IV SCH ×2 (15:42→17:32)
[2017-08-16 17:30] VITALS: BP 115/65
--- NOTE | 2017-08-16 18:32 | NUR ---
RN CLOSING NOTES PT IN BED RESTING. NO S/S OF RESP DISTRESS/SOB. NO C/O PAIN AT THIS TIME. PER PT FAMILY'S STATEMENT, EGD EARLIER THIS WEEK CANCELLED DUE TO OVERBOOKING OF OR. NO PLAN FOR RESCHEDULED EGD THUS FAR. SAFETY MEASURES IN PLACE, CALL LIGHT WITHIN REACH. WILL ENDORSE TO TRIMMER MACHINE FOR EMILY.
--- NOTE | 2017-08-16 19:30 | NUR ---
MS/CORE MAKER HELPER; RECEIVED PT IN BED AWAKE AND QUIET. IVF ON PROGRESS. BREATHING NON LABORED. DENIES PAIN. BED ON LOWER POSITION AND LOCKED FOR SAFETY. SIDE RAILS ARE UP FOR SAFETY. WILL CONTINUE TO MONITOR CALL LIGHT WITHIN REACH.
[2017-08-16 20:00] VITALS: BP 104/58
[2017-08-16] MEDS: IV NS 0.9% 1,000 ML IV PRN (22:05)
--- NOTE | 2017-08-16 23:50 | NUR ---
MS/DIESEL ENGINE MECHANIC; NEW IV LINE STARTED BY THE FURNITURE SALESPERSON ON LFA # 22 AND IVF RESUMED. OLD IV LINE ON THE RAC WAS REMOVED.
[2017-08-17] MEDS: ACETAMINOPHEN 325 MG TABLET PO PRN ×3 (00:39→12:39)
[2017-08-17] MEDS: METRONIDAZOLE 500MG/ NS 100ML 500 MG in PREMIX 1 EA IV SCH ×3 (00:53→12:41)
[2017-08-17] MEDS: MEROPENEM 1 G in IV NS 0.9% 100 ML IV SCH (04:33)
[2017-08-17] MEDS: VANCOMYCIN 0.75 GM in IV D5W 250 ML IV SCH (05:12)
--- NOTE | 2017-08-17 07:00 | NUR ---
MS/BRAKE MECHANIC; SLEPT FAIRLY. IVF ON PROGRESS. HAD 5 X LOOSE BM. AM CARE DONE BY THE CLINICAL REHABILITATION SPECIALIST. REPOSITIONED FOR COMFORT. WILL ENDORSE TO THE DAY SHIFT NURSE.
[2017-08-17 07:23] LABS: BASOPHILS # (AUTO) 0.1 /CMM (0.0-0.2); BASOPHILS % (AUTO) 0.5 % (0.0-2.0); EOSINOPHILS # (AUTO) 0.1 /CMM (0.0-0.7); EOSINOPHILS % (AUTO) 0.8 % (0.0-6.0); HEMATOCRIT 26 % (33-45); HEMOGLOBIN 8.8 g/dL (11.5-14.8); LYMPHOCYTES # (AUTO) 0.7 /CMM (0.8-4.8); MEAN CORPUSCULAR HEMOGLOBIN 32 PG (26.0-33.0); MEAN CORPUSCULAR HGB CONC 34 g/dl (31.0-36.0); MEAN CORPUSCULAR VOLUME 94 fL (82-100); MONOCYTES # (AUTO) 0.4 /CMM (0.1-1.30); MONOCYTES % (AUTO) 4.1 % (2.0-12.0); NEUTROPHILS # (AUTO) 8.8 /CMM (1.8-8.9); NEUTROPHILS % (AUTO) 87.6 % (43.0-81.0); PLATELET COUNT (AUTO) 457 /CMM (150-450); RED BLOOD CELL COUNT(AUTO) 2.77 MIL/uL (4.0-5.2)
[2017-08-17 07:58] LABS: CALCIUM, SERUM 7.3 mg/dL (8.5-10.1); CARBON DIOXIDE 20 mmol/L (21-32); CHLORIDE 106 mmol/L (98-107); CREATININE 0.7 mg/dL (0.6-1.3); GLUCOSE 91 mg/dL (74-106); MAGNESIUM 1.5 mg/dL (1.8-2.4); PHOSPHORUS 2.7 mg/dL (2.5-4.9); SODIUM SERUM 133 mmol/L (136-145); UREA NITROGEN, BLOOD 7 mg/dL (7-18)
[2017-08-17 08:00] VITALS: BP 103/55
[2017-08-17] MEDS: PANTOPRAZOLE 40 MG VIAL IV SCH (08:44)
[2017-08-17] MEDS: VANCOMYCIN HCL 125 MG/2.5 ML ORAL.SUSP PO SCH ×2 (08:44→12:39)
[2017-08-17] MEDS: LACTOBACILLUS RHAMNOSUS GG 1 EACH CAP.SPRINK PO SCH (08:45)
[2017-08-17] MEDS: BOOST FOOD- BERRY 237 ML BOX PO SCH ×2 (08:46→12:49)
[2017-08-17] MEDS: Z GUARD REMEDY 2 OZ OINT TP SCH (08:46)
[2017-08-17] MEDS: HYDROCODONE/APAP 5/325MG 1 EACH TABLET PO PRN ×2 (10:05→16:27)
[2017-08-17] MEDS: Magnesium 1GM/D5W 100ML PREMIX 100 ML IV SCH ×2 (10:23→11:33)
[2017-08-17] MEDS: POTASSIUM CHLORIDE 20 MEQ TAB.PRT.SR PO SCH ×2 (12:39→13:33)
[2017-08-17] MEDS ORDERED: LACT1CAP94 PO (13:00)
[2017-08-17] MEDS ORDERED: MERO1VIA3 IV (13:00)
--- NOTE | 2017-08-17 17:02 | NUR ---
DISCHARGE NOTE PT DISCHARGED TO [facility]. VSS, ALTHOUGH BP WAS LOW IT REMAINED CONSISTENT WITH TREND. NO S/S OF RESP DISTRESS OR SOB. PT HAD C/O MILD TO MODERATE PAIN OF ABDOMEN UPON DISCHARGE, PHARMACOLOGICAL INTERVENTIONS USED. ALL DISCHARGE INSTRUCTIONS AND BELONGINGS LIST SIGNED, COPIED AND PLACED IN CHART. IV ACCESS REMAINS IN PLACE TO CONTINUE IV ABX AT [facility]. REPORT GIVEN TO JOSEPH OF [facility]. PT LEFT IN AMBULANCE WITH FAMILY AND PARAMEDICS.
== END 2017-08-17 16:38 | DRG 871 ==
LOC: ER 15:11 → MED 20:40 → TELE 22:19 → MED 08-10 17:23
PROVIDERS: ADMIT Internal Medicine; ATTEND Internal Medicine
DX: A41.9 Sepsis, unspecified organism (principal); N17.0 Acute kidney failure with tubular necrosis; E43 Unspecified severe protein-calorie malnutrition; J15.9 Unspecified bacterial pneumonia; A04.72 Enterocolitis due to Clostridium difficile, not specified as recurrent; K56.7 Ileus, unspecified; K92.2 Gastrointestinal hemorrhage, unspecified; E88.09 Other disorders of plasma-protein metabolism, not elsewhere classified; E87.1 Hypo-osmolality and hyponatremia; B37.49 Other urogenital candidiasis; D50.0 Iron deficiency anemia secondary to blood loss (chronic); M06.9 Rheumatoid arthritis, unspecified; E78.5 Hyperlipidemia, unspecified; K21.9 Gastro-esophageal reflux disease without esophagitis; E87.6 Hypokalemia; I25.10 Atherosclerotic heart disease of native coronary artery without angina pectoris; Z79.899 Other long term (current) drug therapy; Z90.710 Acquired absence of both cervix and uterus; Z90.49 Acquired absence of other specified parts of digestive tract; M19.90 Unspecified osteoarthritis, unspecified site; Z68.22 Body mass index [BMI] 22.0-22.9, adult; Z91.81 History of falling; R19.5 Other fecal abnormalities; Z98.890 Other specified postprocedural states; I12.9 Hypertensive chronic kidney disease with stage 1 through stage 4 chronic kidney disease, or unspecified chronic kidney disease; N18.9 Chronic kidney disease, unspecified
CPT/HCPCS: 36415; 71045-TC; 76705-TC; 80048-TC; 80076-TC; 80202-TC; 81000-TC; 82272-TC; 83605-TC; 83690-TC; 83735-TC; 84100-TC; 85025-TC; 85730-TC; 86850-TC; 87040-TC; 87045-TC; 87081-TC; 87086-TC; 89055; 93307-TC; A4216; A9563; C9113; J1956; J2185; J2270; J2405; J2543; J3370; J3475; J3480; J3490; J7030; J7050; J7060